=== PATIENT | female | born 1990 | race Native Hawaiian/Other Pacific Islander ===

== ENCOUNTER 2023-06-01 11:45 | Emergency (ER) | payer OTHER, SELFPAY ==
[2023-06-01 12:10] VITALS: BP 124/74; PULSE 70; RESP 18; TEMP 36.3; O2SAT 99
--- NOTE | 2023-06-01 12:13 | ED.GENADULT ---
HPI - General Adult General Chief complaint: Upper Respiratory Infection Stated complaint: sorethroat/covid exposure Source: patient, RN notes reviewed and old records reviewed Mode of arrival: ambulatory Limitations: no limitations History of Present Illness HPI narrative: 33-year-old female patient presents to [facility] with complaint of cough, congestion, sore throat, general malaise this started 2-3 days ago. Patient states was exposed to COVID. Patient states also has tonsil stones. Patient denies weakness, dizziness, chest pain, shortness of breath, wheezing. MD complaint: sore throat Onset (ago): day(s) (2-3) Related Data Home Medications Medication Instructions Recorded Confirmed cetirizine 10 mg tablet 10 mg PO DAILY 06/01/23 06/01/23 dexmethylphenidate 20 mg 20 mg PO DAILY 06/01/23 06/01/23 capsule,extended release [id number] escitalopram oxalate 5 mg tablet 10 mg PO DAILY 06/01/23 06/01/23 famotidine 20 mg tablet 20 mg PO DAILY 06/01/23 06/01/23 montelukast 10 mg tablet 10 mg PO DAILY 06/01/23 06/01/23 Allergies Allergy/AdvReac Type Severity Reaction Status Date / Time latex Allergy Intermediate Rash Verified 06/01/23 12:11 Review of Systems Constitutional: Constitutional: Reports no additional constitutional complaints, Reports body ache(s), Denies chills, Reports fatigue, Denies fever(s) and Denies headache(s) Eyes: Eyes: Reports no additional eye complaints and Denies blurry vision ENT: Reports system reviewed and no additional complaints, except as documented, Denies vertigo, Denies dizziness, Denies ear discharge, Denies otalgia, Denies facial pain, Denies headache(s), Reports nasal congestion, Denies nasal discharge, Denies sinus pain, Denies sinus pressure and Reports sore throat Cardiovascular: Cardiovascular: Reports no additional cardiovascular complaints, Denies chest pain, Denies chest pain at rest, Denies rapid heart rate and Denies dyspnea Respiratory: Respiratory: Reports no additional respiratory complaints, Denies chest congestion, Reports cough, Denies pain on inspiration, Denies pain with cough and Denies dyspnea Gastrointestinal: Gastrointestinal: Denies abdominal pain, Denies diarrhea, Denies nausea and Denies vomiting Integumentary/Breasts: Skin/Breast: Denies rash Neurologic: Reports system reviewed and no additional complaints, except as documented, Denies vertigo, Denies dizziness and Denies headache(s) Endocrine: Endocrine: Denies fatigue PMFSH Past Medical History Medical History Micromastia Comments At the time of my signature, I reviewed and agree with the nursing past medical, surgical, social, and family history. There is no relevant family history pertinent to the patient complaint. Exam Const: General: cooperative, healthy appearing, no acute distress and well nourished Nutritional Appearance: well nourished Orientation/consciousness: patient oriented x3 Limitations: no limitations HENMT: Head: normal to inspection and normocephalic Ears: external ears normal, TM's normal bilaterally, mastoids normal and Abnormal EAC present Face/Nose/Sinus: normal facial exam Face and sinus: normal facial exam Mouth: Yes Normal oral and palatal mucosa present, Yes oropharynx normal and Yes moist mucous membranes Throat: uvula midline and no uvular edema Other: Tonsil stones noted, mild posterior oropharynx erythema Eyes: General: appearance normal, both eyes and all related structures Sclera: sclerae normal Pupils: Equal, round and reactive pupils present Resp: Effort & Inspection: normal respiratory effort, able to speak in complete sentences, no audible wheezes, no cough, no respiratory distress and no retractions Auscultation: clear to auscultation bilaterally, no crackles, no rales, no rhonchi and no wheezes Cardio: Rate: regular rate Rhythm: regular rhythm Skin: General skin exam: normal co
== END 2023-06-01 12:37 | disposition home or self-care (01) ==
PROVIDERS: Emergency Provider Registered Nurse; PCP Nurse Practitioner Family
DX: J06.9 Acute upper respiratory infection, unspecified (principal); Z20.822 Contact with and (suspected) exposure to COVID-19
CPT/HCPCS: 87081; 87426; 87804; 87880; 99213; C9803; G0463

== ENCOUNTER 2024-06-27 17:42 | Emergency (ER) | payer OTHER, SELFPAY ==
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
--- OUTSIDE RECORDS SUMMARY | 2024-06-27 18:02 | XMS_ITS | Clinical Summary ---
Author Organization [facility] [address] Address [address] [place] [address] Care Team Providers Care Manager Poker Name Role Phone Unknown, Notinfile Primary Care Provider Unavail able Allergies Active Allergy Reactions Criticality Noted Date Comments Latex Rash Medium 02/24/2022 Medications montelukast (SINGULAIR) 10 mg tablet 2 Active cholecalciferol (VITAMIN D-3) 50,000 unit capsule TAKE 1 CAPSULE BY MOUTH 1 TIME A WEEK FOR 56 DAYS 2 Active cetirizine 10 mg capsule Take by mouth Active xabkuvfgqjwb-Ak-q urvashi-minerals 18-0.4 mg tablet Take by mouth Active benzonatate (TESSALON) 200 mg capsuleIndication s:Acute non-recurrent pansinusitis Take 1 capsule (200 mg total) by mouth 3 (three) times a day as needed for cough 30 capsule 2 Active Active Problems No known active problems Social History Tobacco Use Types Packs/Day Years Used Date Smoking Tobacco: Never Smokeless Tobacco: Never Tobacco Cessation:Counseling Given: Not Answered Personal Safety Answer Date Recorded Getting School Help Needed Not on file 08/01 Comments Unknown Sex and Gender Information Value Date Recorded Sex Assigned at Not on file 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 Gender Identity Not on file Sexual Orientation Not on file Obstetrics History Last Filed Vital Signs Vital Sign Reading Time Taken Comments Blood Pressure 115/77 02/24/2022 10:48 AM CDT Pulse 71 02/24/2022 10:48 AM CDT Temperature 36.8 ??C (98.2 ??F) 02/24/2022 10:48 AM C DT Respiratory Rate 16 02/24/2022 10:48 AM CDT Oxygen Saturation 98% 02/24/2022 10:48 AM CDT Inhaled Oxygen Concentration - - Weight 76 kg (167 lb 9.6 oz) 02/24/2022 10:48 AM CDT Height 172.7 cm (5' 7.99 ) 02/24/2022 10:48 AM C DT Body Mass Index 25.49 02/24/2022 10:48 AM CDT Plan of Treatment Health Maintenance Due Date Last Done Comments Cervical Cancer Screening 1991 Depression Screening 1991 Hepatitis C Screening 1991 DTaP/Tdap/Td Vaccine (1 - Tdap) 2002 Varicella Vaccines (1 of 2 - 13+ 2-dose series) 01/05/2004 Hepatitis B Screening 2009 Regular Well Visit/Exam 18-64 2009 Covid-19 Vaccine (2 - 2023-2 5 season) 2024 03/03/2021 Influenza Vaccine (#1) 2024 05/30/2020 Pneumococcal vaccine <65 Aged Out 02/13/2022 No longer eligible based on patient's age to complete this topic HPV Vaccines Aged Out No longer eligi ble based on patient's age to complete this topic Insurance [facility] CLAIMS [facility] CLAIMS Care Teams Manager Poker Relationship Specialty Start Date End Date Unknown, Notinfile PCP - General 02/24/22
--- OUTSIDE RECORDS SUMMARY | 2024-06-27 18:02 | XMS_ITS | Patient Health Record ---
Author Organization [facility] Address [address] [facility] [address] [place] [address] Care Team Providers Care Draw Frame Tender Name Role Phone Madina Giron Primary Care Provider Jessy Rocio Zuñiga Unavailable [phone] Migration, Provider Unavailable Unavailable Allergies Allergen (clinical drug ingredient) Drug/Non Drug Allergy documented on EMR Reaction Allergy Type Onset Date Status LATEX, NATURAL RUBBE R (uncoded) Unknown Allergy 10/15/2023 Active Results Component Value Reference Range Notes DRUG SCREEN, 14 DRUGS (DETEC TIMED), URINE Reviewed date:10/15/2023 12:00:00 AM Interpretation: Performing Lab: Notes/Report: Amphetamine negative Barbiturates negative Benzodiazipine negative Buprenorphine negative Cocaine negative MDMA/Ectasy negative Methadone negative Methamphetamine negative Morphine negative Oxycodone negative Phenocyclidine negative THC negative UDT Reviewed date:03/24/2024 02:00:27 PM Interpretation: Performing Lab: Notes/Report: THC N 0 - 50 ng/ml Cocaine N 0 - 300 ng/ml Amphetamine N 0 - 1000 ng/ml Buprenorphine (BUP) N 0 - 10 ng/ml Secobarbital (Bar) N 0 - 300 ng/ml Oxazepam (BZO) N 0 - 300 ng/ml 3-hjmlndtdzu-0,7-qnyipmtv-5, 3-diphenylpyrrolidine (EDDP) N 0 - 300 ng/ml Methamphetamine (MET) N 0 - 1000 ng/ml Methylenedioxymethamphetamine (MDMA) N 0 - 500 ng/ml Morphine (MOP 300/ATC1066) N 0 - 300 ng/ml Methadone (MTD) N 0 - 300 ng/ml Phencyclidine (PCP) N 0 - 25 ng/ml Propoxyphene (PPX) N 0 - 300 ng/ml Nortriptyline (TCA) N 0 - 1000 ng/ml Oxycodone N 0 - 300 ng/ml UDT Reviewed date:01/28/2024 08:47:15 AM Interpretation: Performing Lab: Notes/Report: THC N 0 - 50 ng/ml Cocaine N 0 - 300 ng/ml Amphetamine N 0 - 1000 ng/ml Buprenorphine (BUP) N 0 - 10 ng/ml Secobarbital (Bar) N 0 - 300 ng/ml Oxazepam (BZO) N 0 - 300 ng/ml 6-ixtwpawfxe-0,6-sxahxtsv-4, 3-diphenylpyrrolidine (EDDP) N 0 - 300 ng/ml Methamphetamine (MET) N 0 - 1000 ng/ml Methylenedioxymethamphetamine (MDMA) N 0 - 500 ng/ml Morphine (MOP 300/ICO4170) N 0 - 300 ng/ml Methadone (MTD) N 0 - 300 ng/ml Phencyclidine (PCP) N 0 - 25 ng/ml Propoxyphene (PPX) N 0 - 300 ng/ml Nortriptyline (TCA) N 0 - 1000 ng/ml Oxycodone N 0 - 300 ng/ml Reason For Referral No Information Medications Medication SIG (Take, Route, Frequency, Duration) Notes Start Date End Date Status Vitamin D3 125 MCG (5000 UT) Oral 10/15/2023 Unknown Famotidine 20 MG Oral 10/15/2023 Un known VITAMINS AND MINERALS *Reorder f rom [facility] for eRx and Interaction Alerts* 10/15/2023 Unknown Dexmethylphenidate HCl ER 25 MG 1 capsule in the morning Orally Once a day for 30 days 06/16/2024 5 Active Montelukast Sodium 10 MG Oral 10/15/2023 Unknown busPIRone HCl 5 MG 1 tablet Oral Twice a day for 30 days 06/16/2024 5 Active Adapalene 0.3 % External 10/15/2023 Unk nown traZODone HCl 50 MG 1 tablet at bedtime Orally Once a day for 90 days Active Social History Tobacco Use: Social History Observation [...] past year? Monthly or less (1 point) Problems Problem Type SNOMED Code ICD Code Onset Dates Problem Status W/U Status Risk Notes Problem Moderate recurrent major depression (96881031) Major depressive disorder, recurrent, moderate (F33.1) Active confirmed Problem Generalized anxiety disorder (70801058) Generalized anxiety disorder (F41.1) Active confirmed Problem Attention deficit hyperactivity disorder, combined type (34800372) Attention-deficit hyperactivity disorder, combined type (F90.2) Active confirmed Vital Signs Heart Rate 64 /min 03/24/2024 Blood pressure diastolic 74 mm Hg 03/24/2024 Height-cm 172.72 cm 03/24/2024 Weight-kg 81.19 kg 03/24/2024 Height 68.00 in 03/24/2024 Blood pressure systolic 110 mm Hg 03/24/2024 Weight 179 lbs 03/24/2024 BMI 27.21 kg/m2 03/24/2024 Encounters Encounter Location Date Provider Diagnosis [facility] [address] [address] 07/20/2023 Provider Migration Attention-deficit hyperactivity disorder, combined type F90.2 [facility] [email or web address] [address] [address] 07/22/2023 Provider Migration Attention-deficit hyperactivity disorder, combined type F90.2 [facility] [email or web address] [address] [address] 08/13/2023 Rocio Ramirez Major depressive disorder, recurrent, moderate F33.1 ; Attention-deficit hyperactivity disorder, combined type F90.2 and Generalized anxiety disorder F41.1 [facility] [place] [address] [facility] [address] [address] 09/15/2023 Provider Migration Attention-deficit hyperactivity disorder, combined type F90.2 [facility], [facility] [address] [place] [address] 10/09/2023 Provider Migration Major depressive disorder, recurrent, moderate F33.1 and Attention-deficit hyperactivity disorder, combined type F90.2 [facility], [facility] [address] [place] [address] 10/15/2023 Rocio James Major depressive disorder, recurrent, moderate F33.1 ; Generalized anxiety disorder F41.1 and Attention-deficit hyperactivity disorder, combined type F90.2 [facility], [facility] [address] [place] [address] 11/19/2023 Rocio James [facility], [facility] [address] [place] [address] 11/26/2023 Rocio James Attention-deficit hyperactivity disorder, combined type F90.2 ; Major depressive disorder, recurrent, moderate F33.1 and Generalized anxiety disorder F41.1 [facility], [facility] [address] [place] [address] 01/28/2024 Rocio James Attention-deficit hyperactivity disorder, combined type F90.2 ; Major depressive disorder, recurrent, moderate F33.1 and Generalized anxiety disorder F41.1 [facility], [facility] [address] [place] [address] 03/24/2024 Rocio James Attention-deficit hyperactivity disorder, combined type F90.2 ; Major depressive disorder, recurrent, moderate F33.1 and Generalized anxiety disorder F41.1 [facility], [facility] [address] [place] [address] 06/16/2024 Rocio James Attention-deficit hyperactivity disorder, combined type F90.2 ; Major depressive disorder, recurrent, moderate F33.1 and Generalized anxiety disorder F41.1 [facility], [facility] [address] [place] [address] 07/28/2023 Provider Migration [facility], [facility] [address] [place] [address] 07/29/2023 Provider Migration [facility], [facility] [address] [place] [address] 09/01/2023 [facility], [facility] [address] [place] [address] 09/14/2023 [facility], [facility] [address] [place] [address] 09/29/2023 [facility], [facility] [address] [place] [address] 10/06/2023 Provider [facility], [facility] [address] [place] [address] 10/09/2023 [facility], [facility] [address] [place] [address] 10/17/2023 [facility], [facility] [address] [place] [address] 10/18/2023 [facility], [facility] [address] [place] [address] 12/01/2023 Rocio James Attention-deficit hyperactivity disorder, combined type F90.2 [facility], [facility] [address] [place] [address] 01/05/2024 Rocio James Attention-deficit hyperactivity disorder, combined type F90.2 [facility], [facility] [address] [place] [address] 02/16/2024 Rocio James Attention-deficit hyperactivity disorder, combined type F90.2 [facility] [address] [place] [address] 02/24/2024 Rocio James [facility], [facility] [address] [place] [address] 03/16/2024 Rocio James Attention-deficit hyperactivity disorder, combined type F90.2 [facility], [facility] [address] [place] [address] 03/18/2024 Rocio James Attention-deficit hyperactivity disorder, combined type F90.2 [facility], [facility] [address] [place] [address] 05/03/2024 Rocio James Attention-deficit hyperactivity disorder, combined type F90.2 Assessments Encounter Date Diagnosis (ICD Code) Assessment Notes Treatment Notes Treatment Clinical Notes Section Notes 11/26/2023 Attention-defici t hyperactivity disorder, combined type (ICD-10 - F90.2) 12/01/2023 Attention-defici t hyperactivity disorder, combined type (ICD-10 - F90.2) 01/05/2024 Attention-defici t hyperactivity disorder, combined type (ICD-10 - F90.2) 01/28/2024 Attention-defici t hyperactivity disorder, combined type (ICD-10 - F90.2) 02/16/2024 Attention-defici t hyperactivity disorder, combined type (ICD-10 - F90.2) 03/16/2024 Attention-defici t hyperactivity disorder, combined type (ICD-10 - F90.2) 03/18/2024 Attention-defici t hyperactivity disorder, combined type (ICD-10 - F90.2) 03/24/2024 Attention-defici t hyperactivity disorder, combined type (ICD-10 - F90.2) 05/03/2024 Attention-defici t hyperactivity disorder, combined type (ICD-10 - F90.2) 06/16/2024 Attention-defici t hyperactivity disorder, combined type (ICD-10 - F90.2) 07/20/2023 Attention-defici t hyperactivity disorder, combined type (ICD-10 - F90.2) 07/22/2023 Attention-defici t hyperactivity disorder, combined type (ICD-10 - F90.2) 08/13/2023 Major depressive disorder, recurrent, moderate (ICD-10 - F33.1) 08/13/2023 Generalized anxiety disorder (ICD-10 - F41.1) 08/13/2023 Attention-defici t hyperactivity disorder, combined type (ICD-10 - F90.2) 09/15/2023 Attention-defici t hyperactivity disorder, combined type (ICD-10 - F90.2) 10/09/2023 Major depressive disorder, recurrent, moderate (ICD-10 - F33.1) 10/09/2023 Attention-defici t hyperactivity disorder, combined type (ICD-10 - F90.2) 10/15/2023 Major depressive disorder, recurrent, moderate (ICD-10 - F33.1) 10/15/2023 Generalized anxiety disorder (ICD-10 - F41.1) 10/15/2023 Attention-defici t hyperactivity disorder, combined type (ICD-10 - F90.2) 11/26/2023 Major depressive disorder, recurrent, moderate (ICD-10 - F33.1) 11/26/2023 Generalized anxiety disorder (ICD-10 - F41.1) 06/16/2024 Major depressive disorder, recurrent, moderate (ICD-10 - F33.1) 03/24/2024 Major depressive disorder, recurrent, moderate (ICD-10 - F33.1) 01/28/2024 Major depressive disorder, recurrent, moderate (ICD-10 - F33.1) 01/28/2024 Generalized anxiety disorder (ICD-10 - F41.1) 03/24/2024 Generalized anxiety disorder (ICD-10 - F41.1) 06/16/2024 Generalized anxiety disorder (ICD-10 - F41.1) 11/26/2023 Other Start methylphenidate IR 5mg PRN in the afternoons for ADHD booster. Patient educated on all medications including potential benefits, side effects, risks. Educated on proper dosing schedule and importance of compliance. [place] report checked and consistent with prescription history, no controlled substance prescriptions from other providers. 01/28/2024 Other Stop Wellbutrin due to irritbility, nausea. Taper off of escitalopram-take half tablet daily for 4 days then stop. Start fluoxetine-take 10mg daily. May increase to 20mg after one week if depression, anxiety continue. Patient educated on all medications including potential benefits, side effects, risks. Educated on proper dosing schedule and importance of compliance. [place] report checked and consistent with prescription history, no controlled substance prescriptions from other providers. 03/24/2024 Other Discontinue fluoxetine due to ineffectiveness. Start duloxetine 30mg daily for depression, anxiety. Patient educated on all medications including potential benefits, side effects, risks. Educated on proper dosing schedule and importance of compliance. [place] report checked and consistent with prescription history, no controlled substance prescriptions from other providers. 06/16/2024 Other Stop duloxetine Start buspar 5mg BID for anxiety Patient educated on all medications including potential benefits, side effects, risks. Educated on proper dosing schedule and importance of compliance. [place] report checked and consistent with prescription history, no controlled substance prescriptions from other providers. -Assessment and treatment plan reviewed with patient. -Compliance with treatment plan importance discussed. -Discussed the risks/benefits of this medication -Discussed medication side effects. -Contact office if symptoms worsen. -Discussed that it can take up to 6-8 weeks to see full therapeutic effects of psychotropic medications. -Crisis prevention hotline 598. Plan Of Treatment Pending Test Test Name Order Date UDT 11/26/2023 Next Appt Details Provider Name:Rocio Ramirez, 09/15/2024 08:15:00 AM, [address] [facility] [address], [facility] [address], [place], [address], Insurance Providers Payer Name Payer Address Payer Phone Subscriber Number Group Number Insured Name Patient Relationship to Insured Coverage Start Date Coverage End Date [facility] [address] [place] [address] [id number] AUGUSTINE SINGH Self - patient is the insured Medical (General) History Medical History History ICD Code Problems: Attention deficit hyperactivit y disorder, combined type Generalized anxiety disorder Moderate recurrent major depression , Surgical History Surgery Date(Month/Year) Sinus surgery 11/08/2017 Any surgical history 05/09/2016
--- OUTSIDE RECORDS SUMMARY | 2024-06-27 18:02 | XMS_ITS | Referral Summary ---
Author Organization [facility] [address] [place] Address [address] [place] [address] Care Team Providers Care Key Punch Teacher Name Role Phone Unknown, Notinfile Primary Care Provider Unavail able Allergies Active Allergy Reactions Criticality Noted Date Comments Latex Rash Medium 02/24/2022 Medications montelukast (SINGULAIR) 10 mg tablet 2 Active cholecalciferol (VITAMIN D-3) 50,000 unit capsule TAKE 1 CAPSULE BY MOUTH 1 TIME A WEEK FOR 56 DAYS 2 Active cetirizine 10 mg capsule Take by mouth Active vskjrcjecvzi-Bi-g urvashi-minerals 18-0.4 mg tablet Take by mouth [...] on file 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
--- OUTSIDE RECORDS SUMMARY | 2024-06-27 18:03 | XMS_ITS | Clinical Summary ---
Author Organization [facility] Address [address] [place] [address] Care Team Providers Care Safety Admin Assistant Name Role Phone Unavailable Primary Care Provider Unavailabl e Immunizations Immunization Administration Dates Next Due Covid-19 Vaccine, Vector-nr, Rs-ad26, Pf, 0.5 Ml ([email or web address]) 03/03/2021 Social History Tobacco Use Types Packs/Day Years Used Date Smoking Tobacco: Never Assessed Comments Unknown Sex and Gender Information Value Date Recorded Sex Assigned at Not on file Legal Sex Female 1:11 PM CDT Gender Identity Not on file Sexual Orientation Not on file Plan of Treatment Health Maintenance Due Date Last Done Comments Hepatitis C Virus (HCV) Screening 1991 TdaP Immunization 1991 Hepatitis B Immunization (1 of 3 - 19+ 3-dose series) 2010 Pap Smear 01/05/2012 Cervical Cancer Screening (CCS) 2021 HPV/Cotest 2021 Influenza Immunization (#1) 2024 05/30/2020 SARS-COV-2 Immunization ( season) 2024 03/03/2021 Respiratory Syncytial Virus (RSV) Immunization (Adult) (1 - 1-dose 75+ series) 2066 Meningococcal Immunization (ACWY) Aged Out No longer eligible based on patient's age to complete this topic Pneumococcal Immunization Combined Aged Out No longer eligible based on patient's age to complete this topic Rotavirus Immunization Aged Out No lo nger eligible based on patient's age to complete this topic
--- OUTSIDE RECORDS SUMMARY | 2024-06-27 18:04 | XMS_ITS | Patient Health Summary ---
Author Organization [facility] Address [address] [facility] [address] [address] Care Team Providers Care Mail Clerk Name Role Phone [facility], [address] [place] [address] Primary Care Prov ider Note from [facility],non-owned Affiliates and Associated Physician Practices is amultiple site organization consisting of ambulatory clinics and hospital sitesin [place], [place], [place]. This disclosure is being madepursuant to the Care Everywhere program and may not contain all information available regarding this patient. Last updated 18.[facility] [employer] Allergies * Latex(Unknown) Active Problems Problem Noted Date Diagnosed Date Third 07/13/2019 Encounter for ultrasound 07/13/2019 H/O: section 07/13/2019 Social History Tobacco Use Types Packs/Day Years Used Date Smoking Tobacco: Never Assessed Sex and Gender Information Value Date Recorded Sex Assigned at Not on file Gender Identity Not on file Sexual Orientation Not on file Procedures * SONOGRAM - COMPLETE(Performed 11/08/2019) Performed for Third (HCC), Encounter for ultrasound (HCC), H/O: section * SONOGRAM - COMPLETE(Performed 09/26/2019) Performed for Third (HCC), Encounter for ultrasound (HCC), H/O: section * SONOGRAM - COMPLETE(Performed 07/15/2019) Performed for Third (HCC), Encounter for ultrasound (HCC), H/O: section Results * SONOGRAM - COMPLETE (11/08/2019 8:36 AM CDT) Only the most recent of3 resultswithin the time period is included. Anatomical Region Laterality Modality Other 11/08/2019 8:36 AM CDT Narrative 11/08/2019 9:37 AM CDT ? - [facility] ?PHONE: ??FAX: ? Pat. Name: ?AUGUSTINE SINGH Pat. No: ?[id number] Study Date: ?? 11/08/2019 ??8:36am , Age: ? 1990, 29 Pregnancies: ?? 3, Para 2 Height: ? 68 in Weight: ? 161 lb LMP: ?02/13/2019 GA by LMP: ?38w2d GA by Base: ?? 38w2d ?? AYAZ: 11/20/2019 GA by US: ? 36w6d ?? AYAZ: 11/30/2019 GA Selected: ??38w2d (LMP) AYAZ: ?11/20/2019 Referring MD: Reta Whiting Capt, DARRIAN, MD ISIDRO Carousel Operator: ??Magali Smith RDMS CPT4: ? 20814 BMI: ?24.48 Hist/Ind: ? Size > Dates ?G2: macrosomia & CD MEASUREMENTS & AGE ? GROWTH EVALUATION Measurement ??GA ? Range ? Srce %for GA Ratios ----- ---- ------- BPD ??8.8 cm 35w5d (99l5m-55c0t) Hadl BPD 10% FL/BPD 0.82 (0.71 - 0.87) HC ??32.9 cm 37w3d (87l2h-33l0l) Hadl HC ??13% FL/AC ??0.21 (0.20 - 0.24) AC ??34.3 cm 38w2d (98i2e-67j7r) Hadl AC ??68% HC/AC ??0.96 (0.90 - 1.09) FL ?? 7.2 cm 37w0d (17g1r-70b2u) Hadl FL ??23% CI ? 0.76 (0.70 - 0.86) HL ?? 6.3 cm 36w3d (47k0q-25n3c) Michael HL ??18% GA for sonogram 36w6d (84l7m-88t5v) ?? Weight Estimate: based on (BPD,HC,AC,FL) [place] ?Weight: 3238 gm (2765-3711gm) Had ? : 7lbs, 2oz ? Normal: 3296 gm (2472- 4120gm) Had ? Wt% ? 45% for 38w2d Heart Rate: 155 bpm Amniotic Fluid Index: 15.3cm (07.3-23.5) Q1: 3.4cm ??Q2: 2.6cm ??Q3: 3.2cm ??Q4: 6.2cm ?? EVAL, PLACENTA Presentation: cephalic Placenta: posterior Heart Rate: 155 bpm Amniotic Fluid Volume: normal CLINICAL SUMMARY Study Number: 3 ?? A single fetus is seen in cephalic presentation. ??The measurements today are consistent with appropriate interval growth. ??The AYAZ is based on LMP and prior ultrasound . ??The amniotic fluid volume is within normal limits. ?? IMPRESSION: Single, live, intrauterine at 38w2d ?? size is within normal limits ?? Amniotic fluid volume: within normal limits No malformations seen within the limitations of ultrasound RECOMMEND: Ultrasound as clinically indicated Please be advised that these recommendations are being made in the best interest of our patients during the COVID 19 Pandemic Thank you for allowing us the opportunity to care for your patient Sha Myers MD <Electronic Signature> ??11/08/2019 09:36am Sha Myers MD [facility] ORDERABLES Care Teams Mail Clerk Relationship Specialty Start Date End Date [address] [facility] [place] [address] PCP - General Family Medicine 07/14/19
--- OUTSIDE RECORDS SUMMARY | 2024-06-27 18:04 | XMS_ITS | Clinical Summary ---
Author Organization [facility] Address [address] [place] [address]. [place] [address] [place] [address] Care Team Providers Care College Associate Name Role Phone Elvia Sparrow MD Primary Care Provider + [phone] Allergies Active Allergy Reactions Criticality Noted Date Comments Latex Hives,Unknown 10/30/2017 Seasonal Eyes Water & Itch 10/30/2017 Medications fexofenadine 180 MG tablet Take 180 mg by mouth daily. Active vitamin, low iron, ( VITAMIN WITH IRON) 27-0.8 MG tablet Take 1 tablet by mouth daily. Active sertraline 25 MG tablet Take 25 mg by mouth daily. Active lanolin Cream cream Apply topically as needed for Irritation. 9 mL 0 Active hydrocortisone 2.5 % rectal cream Place rectally 2 (two) times daily. 1 Tube 0 Active Active Problems Problem Noted Date Diagnosed Date Vaginal delivery ([facility]) 11/14/2019 Social History Tobacco Use Types Packs/Day Years Used Date Smoking Tobacco: Never Smokeless Tobacco: Never Alcohol Use Standard Drinks/Week Comments No 0 (1 standard drink = 0.6 oz pur e alcohol) Humiliation, Afraid, Rape, and Kick questionnair e Answer Date Recorded Fear of Current or Ex-Partner No Emotionally Abused No 11/13/2019 Physically Abused No 11/13/2019 Sexually Abused No 11/13/2019 Comments No Sex and Gender Information Value Date Recorded Sex Assigned at Not on file Legal Sex Female 7:47 PM CDT Gender Identity Not on file Sexual Orientation Not on file Last Filed Vital Signs Vital Sign Reading Time Taken Comments Blood Pressure 116/77 11/15/2019 9:17 AM CDT Pulse 61 11/15/2019 9:17 AM CDT Temperature 36.8 ??C (98.2 ??F) 11/15/2019 9:17 AM CD T Respiratory Rate 16 11/15/2019 9:17 AM CDT Oxygen Saturation 98% 11/15/2019 9:17 AM CDT Inhaled Oxygen Concentration - - Weight 93 kg (205 lb) 11/13/2019 9:55 AM CDT Height 172.7 cm (5' 8 ) 11/13/2019 9:55 AM CDT Body Mass Index 31.17 11/13/2019 9:55 AM CDT Plan of Treatment Health Maintenance Due Date Last Done Comments Cervical Cancer Screening Pa p Smear (Age 30 to 64) Every 3 Years 1991 Annual Physical 1994 Hepatitis C 2009 DTaP, Tdap and Td Vaccines ( 1 - Tdap) 2010 Hepatitis B Vaccines (1 of 3 - 19+ 3-dose series) 2010 Cervical Cancer Screening Pa p with HPV Testing (Age 30 to 64) Every 5 Years 2021 Cervical Cancer Screening with HPV 2021 COVID-19 Vaccine (2023-2 5 season) 2024 Influenza Adult (#1) 2024 HPV Vaccines Aged Out No longer eligi ble based on patient's age to complete this topic Meningococcal B Vaccine Aged Out No l onger eligible based on patient's age to complete this topic Meningococcal Vaccine Aged Out No kaycee germaine eligible based on patient's age to complete this topic Pneumococcal Vaccine: Pediat rics (0 to 5 Years) and At-Risk Patients (6 to 64 Years) Aged Out No longer eligible b ased on patient's age to complete this topic RSV Immunizations Under 20 Months Aged Out No longer eligible based on patient's age to complete this topic Insurance Advance Directives * Full Code (Latest Code Status on File) Date Activated Date Inactivated Comments 11/13/2019 11:41 AM 11/13/2019 6:02 PM Care Teams College Associate Relationship Specialty Start Date End Date Elvia Sparrow MD [address] [place] [id number] PCP - General FAMILY PRACTICE 10/30/17
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
--- OUTSIDE RECORDS SUMMARY | 2024-06-27 18:04 | XMS_ITS | CONTINUITY OF CARE DOCUMENT ---
Author Name pedro luis cloud Address Unknown Organization [facility] Office Address [address] [place] [address] Phone [phone] Care Team Providers Care Creative Arts Music Therapist Name Role Phone Sam Shay DO Robert Unavailable Gianna [facility] Unavailable [facility] Unavailable INSURANCE PROVIDERS Payer name Policy type / Coverage type Marti red constitution party ID [facility] [employer] insurance CAIS [id number]
--- OUTSIDE RECORDS SUMMARY | 2024-06-27 18:04 | XMS_ITS | Encounter Summary ---
Author Organization [facility] Address [address] [place] [address]. [place] [address] [place] [address] Care Team Providers Care Replanting Machine Crew Name Role Phone Elvia Sparrow MD Primary Care Provider + [phone] Encounter Details Date Type Department Care Team (Late st Contact Info) Description 11/18/2019 Hospital Follow-up Call [facility] [place] [id number] Dinora Asencio, RN Social History Tobacco Use Types Packs/Day Years [...] on file Sexual Orientation Not on file COVID-19 Exposure Response Date Recorded In the last month, have you been in contact with someone who was confirmed or suspected to have Coronavirus / COVID-19? No / Unsure 11/13/2019 9:39 AM CDT documented as of this encounter Functional Status * RETIRED Are you deaf or do you have serious difficulty hearing Answer Date of Assessment Author Status No 11/15/2019 10:28 AM CDT Acti ve * RETIRED Are you blind or do you have serious difficulty seeing, even when wearing glasses? Answer Date of Assessment Author Status No 11/15/2019 10:28 AM CDT Acti ve * Do you have serious difficulty walking or climbing stairs? Answer Date of Assessment Author Status No 11/15/2019 10:28 AM Mary Ann Pulido RN Active * Do you have difficulty dressing or bathing? Answer Date of Assessment Author Status No 11/15/2019 10:28 AM Mary Ann Pulido RN Active * Because of a physical, mental, or emotional condition, do you have difficulty doing errands alone such as visiting a doctor's office or shopping? Answer Date of Assessment Author Status No 11/15/2019 10:28 AM Mary Ann Pulido RN Active documented as of this encounter Mental Status * Because of a physical, mental, or emotional condition, do you have serious difficulty concentrating, remembering, or making decisions? Answer Entry Date Author Status No 11/15/2019 10:28 AM Mary Ann Pulido RN Active documented in this encounter Plan of Treatment Not on file documented as of this encounter Visit Diagnoses Not on filedocumented in this encounter Care Teams Replanting Machine Crew Relationship Specialty Start Date End Date Elvia Sparrow MD [address] [place] [address] PCP - General FAMILY PRACTICE 10/30/17 documented as of this encounter
--- OUTSIDE RECORDS SUMMARY | 2024-06-27 18:04 | XMS_ITS ---
Author Organization [facility] Address [address] [place] [address] Care Team Providers Care Operating Manager Name Role Phone Armando Gongora Primary Care Provider Jayshree Durbin [phone] REASON FOR VISIT Last Attempt: Immunotherapy OOP Estimate Encounters Encounter Location Date Provider Diagnosis [facility] [address] [place] [address] 04/30/2023 Jayshree Moran Plan Of Treatment No Information Progress Notes * Elizabeth SINGHDOB:1989 (33 yo F)Acc No.[id number]:04/30/2023 Patient:?Elizabeth SINGH :1990???Age:33 Y???Sex:Female Address:[address] [place], [address] * true * Date:? Generated for Printi peng/Wilman/eTransmitting on:?06/27/2024 06:04 PM PHP WEB DEVELOPER
--- OUTSIDE RECORDS SUMMARY | 2024-06-27 18:04 | XMS_ITS ---
Author Organization [facility] [employer] Address [address] [facility] [address] [address] [place] [address] Care Team Providers Care Police Inspector Name Role Phone Madina Giron Primary Care Provider Jessy Rocio Zuñiga Unavailable [phone] REASON FOR VISIT Refill Medications Medication SIG (Take, Route, Frequency, Duration) Notes Start Date End Date Status Dexmethylphenidate HCl ER 25 MG 1 capsule in the morning Oral Once a day for 30 days 05/03/2024 06/02/2024 Active Social History Sex Assigned At : Social History Observation Description Sex Assigned At Female Encounters Encounter Location Date Provider Diagnosis [facility] [employer] [facility] [address] [place] [address] 05/03/2024 Rocio Ramirez Attention-deficit hyperactivity disorder, combined type F90.2 Assessments Encounter Date Diagnosis (ICD Code) Assessment Notes Treatment Notes Treatment Clinical Notes Section Notes 05/03/2024 Attention-deficit hyperactivity disorder, combined type (ICD-10 - F90.2) Plan Of Treatment Medication Medication Name Sig Start Date Stop Date Notes Dexmethylphenidate HCl ER 25 MG 1 capsul e in the morning Oral Once a day for 30 days 05/03/2024 06/02/2024 Next Appt Details Provider Name:Rocio Ramirez, 09/15/2024 08:15:00 AM, [address], [place], [address], Progress Notes * AUGUSTINE SINGHDOB:1989 (34 yo F)Acc No.[id number]:05/03/2024 Patient:?AUGUSTINE SINGH :1990???Age:34 Y???Sex:Female Address:[address] [place] [address], [address] * Refills? Refill Dexmethylphenidate HCl ER Capsule Extended Release 24 Hour, 25 MG, Oral, 30, 1 capsule in the morning, Once a day, 30 days, Refills=0 * true * Date:? Generated for Nichelle khoury/Wilman/eTransmitting on:?06/27/2024 06:04 PM VALIDATION ARCHITECT
--- OUTSIDE RECORDS SUMMARY | 2024-06-27 18:04 | XMS_ITS | Encounter Summary ---
Author Organization [facility] Address [address] [place] [address]. [place] [address] [place] [address] Care Team Providers Care Sales Planning Manager Name Role Phone Elvia Sparrow MD Primary Care Provider + [phone] Encounter Details Date Type Department Care Team (Late st Contact Info) Description 11/19/2019 Hospital Follow-up Call [facility] [place] [address] Lou Ferrer, RN Social History Tobacco Use Types Packs/Day [...] on filedocumented in this encounter Care Teams Sales Planning Manager Relationship Specialty Start Date End Date Elvia Sparrow MD [address] [place] [address] PCP - General FAMILY PRACTICE 10/30/17 documented as of this encounter
--- OUTSIDE RECORDS SUMMARY | 2024-06-27 18:04 | XMS_ITS ---
Author Organization [facility] Address [address] [place] [address] Care Team Providers Care Wood Milling Machine Operator Name Role Phone Armando Gongora Primary Care Provider UnavailJayshree Bhandari Unavailable [phone] ZZ-Migration, Provider Unavailable Unavailab le REASON FOR VISIT [facility] Encounter Medications Medication SIG (Take, Route, Frequency, Duration) Notes Start Date End Date Status Montelukast Sodium 10 MG 1 tab(s) orally once a day for 90 days Active Pepcid 20 MG 1 tab(s) orally 2 times a day for 90 days Active Fluticasone Propionate 50 MCG/ACT 2 spray(s) in each nostril BID for 30 day(s) Active NASAL WASHES N/A DIRECTED INTRANASALLY NEEDED for 30 *Please review for potential replacement for e-prescription and drug interaction check* Active D3 125 MCG 1 TAB(S) ORALLY ONCE A DAY for 30 DAY(S) *Please review and pick correct strength-formula tion from Medispan options. If intended option is not shown, discontinue and re-order from Quick Search* Active Pepcid 20 MG 1 tab(s) orally 2 times a day for 90 days Active Cetirizine HCl 10 MG 1 tab(s) orally BID for 90 days Active Cetirizine HCl 10 MG 1 tab(s) orally BID for 90 days Active Benadryl Allergy 25 MG 1 tab(s) orally 3 times a day Not-Taking Montelukast Sodium 10 MG 1 tab(s) orally once a day for 90 days Active Multivitamin - 1 tab(s) orally once a day for 30 day(s) Active Probiotic Formula *Please review and pick correct strength-formula tion from Domosite options. If intended option is not shown, discontinue and re-order from Quick Search* Active Montcalm-3 1000 MG 1 cap(s) orally once a day for 30 day(s) takes bid Active Escitalopram Oxalate 20 MG 1 tab(s) orally once a day Active Azelastine HCl 137 MCG/SPRAY 2 spray(s) intranasally 2 times a day for 30 day(s) Active Dexmethylphenidate HCl 20 MG 1 CAP(S) ORALLY ONCE A DAY (IN THE MORNING) *Please review and pick correct strength-formula tion from Domosite options. If intended option is not shown, discontinue and re-order from Quick Search* Active Encounters Encounter [facility] Date [facility] [address] [facility] Provider FlorZ-Pedro Luis Allergic rhinitis due to pollen J30.1 ; Idiopathic urticaria L50.1 and Vitamin D deficiency, unspecified E55.9 Assessments Encounter Date Diagnosis (ICD Code) Assessment Notes Treatment Notes Treatment Clinical Notes Section Notes 11/14/2023 Allergic rhinitis due to pollen (ICD-10 - J30.1) 11/14/2023 Idiopathic urticaria (ICD-10 - L50.1) 11/14/2023 Vitamin D deficiency, unspecified (ICD-10 - E55.9) Plan Of Treatment Medication Medication Name Sig Start Date Stop Date Notes Montelukast Sodium 10 MG 1 tab(s) orally once a day for 90 days Pepcid 20 MG 1 tab(s) orally 2 times a day for 90 days Fluticasone Propionate 50 MCG/ACT 2 spray(s) in each nostril BID for 30 day(s) NASAL WASHES N/A DIRECTED INTRANASALLY NEEDED for 30 *Please review for potential replacement for e-prescription and drug interaction check* D3 125 MCG 1 TAB(S) ORALLY ONCE A DAY for 30 DAY(S) *Please review and pick correct strength-formulation from Domosite options. If intended option is not shown, discontinue and re-order from Quick Search* Cetirizine HCl 10 MG 1 tab(s) orally BID for 90 days Azelastine HCl 137 MCG/SPRAY 2 spray(s) intranasally 2 times a day for 30 day(s) Progress Notes * Elizabeth SINGH JDOB:1989 (34 yo F)Acc No.[id number]:11/14/2023 Patient:?Elizabeth SINGH Provider:?Provider Migration :1990???Age:33 Y???Sex:Female D ate:11/14/2023 Address:[address] [place], [place] [id number] Pcp:Armando Gongora Subjective: * Chief Complaints: * ???1. Multum To [facility] Con version Encounter. * Medical History:? * Medications:?Taking Dexmethy lphenidate HCl 20 MG CAPSULE, EXTENDED RELEASE 1 CAP(S) ORALLY ONCE A DAY (IN THE MORNING) , Notes to Pharmacist: *Please review and pick correct strength-formulation from Domosite options. If intended option is not shown, discontinue and re-order from Quick Search*, Taking Escitalopram Oxalate 20 MG Tablet 1 tab(s) orally once a day , Taking Montcalm-3 1000 MG Capsule 1 cap(s) orally once a day , Notes to Pharmacist: takes bid, Taking Probiotic Formula , Notes to Pharmacist: *Please review and pick correct strength-formulation from Domosite options. If intended option is not shown, discontinue and re-order from Backchat Search*, Taking Multivitamin - Tablet 1 tab(s) orally once a day , Taking Cetirizine HCl 10 MG Tablet 1 tab(s) orally BID , Taking Pepcid 20 MG Tablet 1 tab(s) orally 2 times a day , Taking Montelukast Sodium 10 MG Tablet 1 tab(s) orally once a day , Not- Taking/PRN Benadryl Allergy 25 MG Tablet 1 tab(s) orally 3 times a day Objective: * Vitals:? Assessment: * Assessment: 1.?Allergic rhinitis due to pollen - J30.1???2.?Idiopathic urticaria - L50.1???3.?Vitamin D deficiency, unspecified - E55.9??? Plan: * Treatment: 2.?Idiopathic urticaria? Refill Cetirizine HCl Tablet, 10 MG, 1 tab(s), orally, BID, 90 days, 180 Tablet, Refills 1;?Refill Pepcid Tablet, 20 MG, 1 tab(s), orally, 2 times a day, 90 days, 180 Tablet, Refills 1;?Refill Montelukast Sodium Tablet, 10 MG, 1 tab(s), orally, once a day, 90 days, 90 Tablet, Refills 1.?? 3.?Vitamin D deficiency, uns pecified? Continue D3 TABLET, 125 MCG, 1 TAB(S), ORALLY, ONCE A DAY, 30 DAY(S), 30, Notes to Pharmacist: *Please review and pick correct strength-formulation from LookSharp (powering [employer])span options. If intended option is not shown, discontinue and re-order from Quick Search*.?? 4.?Others? Start Azelastine HCl Solution, 137 MCG/SPRAY, 2 spray(s), intranasally, 2 times a day, 30 day(s), 1, Refills 3.?? * Billing Information: * Visit Code:? * Procedure Codes:? * Electronic signature of Isaak AMOR-Migration on 06/27/2024 at 06:03 PM GORING CUTTER Sign off status: Pending * Provider:?Provider Migration Date:?11/13 Generated for Nichelle khoury/Wilman/Princess on:?06/27/2024 06:03 PM GORING CUTTER
--- OUTSIDE RECORDS SUMMARY | 2024-06-27 18:04 | XMS_ITS | Referral Summary ---
Author Organization [facility] Address [address] [place] [address] Care Team Providers Care Associate Spa Director Name Role Phone [facility], [address] [place] [address] Primary Care Prov ider Source Comments [facility],non-owned Affiliates and Associated Physician Practices is amultiple site organization consisting of ambulatory clinics and hospital sitesin [place], [place], [place] and [place]. This disclosure is being madepursuant to the Care Everywhere program and may not contain all information available regarding this patient. Last updated 18.[facility] [employer] Allergies Active Allergy Reactions Criticality Noted Date Comments Latex Unknown 07/13/2019 Active Problems Problem Noted Date Diagnosed Date Third 07/13/2019 Encounter for ultrasound 07/13/2019 H/O: section 07/13/2019 Overview (07/13/2019): X 1 for breech presentation Social History Tobacco Use Types Packs/Day Years Used Date Smoking Tobacco: Never Assessed Sex and Gender Information Value Date Recorded Sex Assigned at Not on file Gender Identity Not on file Sexual Orientation Not on file Plan of Treatment Not on file Care Teams Associate Spa Director Relationship Specialty Start Date End Date [facility] [address] [place], [place], [place] [address] PCP - General Family Medicine 07/14/19
--- OUTSIDE RECORDS SUMMARY | 2024-06-27 18:04 | XMS_ITS | Encounter Summary ---
Author Organization [facility] Address [address] [place] [address]. [place] [address] [place] [address] Care Team Providers Care Application Software Engineer Name Role Phone Elvia Sparrow MD Primary Care Provider + [phone] Encounter Details Date Type Department Care Team (Late st Contact Info) Description 11/16/2019 Hospital Follow-up Call [facility] [place], [place] [id number] Kesha Jiang, RN Social History Tobacco Use Types Packs/Day [...] on filedocumented in this encounter Care Teams Application Software Engineer Relationship Specialty Start Date End Date Elvia Sparrow MD [address] [place] [address] PCP - General FAMILY PRACTICE 10/30/17 documented as of this encounter
--- OUTSIDE RECORDS SUMMARY | 2024-06-27 18:04 | XMS_ITS ---
Author Organization [facility] Address [address] [place] [address] Care Team Providers Care Retail And Promotions Coordinator Name Role Phone Armando Gongora Primary Care Provider Jayshree Durbin Unavailable [phone] Allergies No Known Allergies REASON FOR VISIT [facility] follow-up, with chronic sinus symptoms and infections. S/P sinus surgery by Dr. Gandhi in 2011.Wants to hold off on SCIT as she is doing so well., Chronic hives since 2011 with episodic swellingof eyelids at least 10 times in life. Doing better on new regimen - no interval hives. Seen by Endocrinology as thryoid ab >1000, Taking Vitamin D3. finished 8 weeks of loading. Now on 5000 IU. Pneumovax given last visit. Hib not drawn, rechecked which was low. Has yet to obtain booster. No interval infections., Random rashes with various products. Trying to stick to fragrance free products - interested in patch testing, MA evaluation for screening to assess suitability for vaccine administration Medications Medication SIG (Take, Route, Frequency, Duration) Notes Start Date End Date Status PEPCID 20 mg 1 tab(s) orally 2 times a day for 90 days Active MONTELUKAST 10 mg 1 tab(s) orally once a day for 90 days Active MULTIVITAMIN Multiple Vitamins 1 tab(s) orally once a day for 30 day(s) Active CETIRIZINE 10 mg 1 tab(s) orally BID for 90 days Active BENADRYL ALLERGY 25 mg 1 tab(s) orally 3 times a day Not-Taking OMEGA-3 1000 mg 1 cap(s) orally once a day for 30 day(s) takes bid Active PROBIOTIC FORMULA Ac tive AZELASTINE HYDROCHLORIDE NASAL 137 mcg/inh 2 spray(s) intranasally 2 times a day for 30 day(s) Active ESCITALOPRAM 20 mg 1 tab(s) orally once a day Active FLUTICASONE NASAL 50 mcg/inh 2 spray(s) in each nostril BID for 30 day(s) Active DEXMETHYLPHENIDATE 20 mg 1 cap(s) orally once a day (in the morning) Active NASAL WASHES N/A as directed intranasally as needed for 30 Active D3 125 mcg 1 tab(s) orally once a day for 30 day(s) Active MONTELUKAST 10 mg 1 tab(s) orally once a day for 90 days Active PEPCID 20 mg 1 tab(s) orally 2 times a day for 90 days Active CETIRIZINE 10 mg 1 tab(s) orally BID for 90 days Active Immunizations Vaccine Route Administration Date Status Comme nts NOC PedvaxHIB IM Intramuscular 04/30/2023 Administered Social History Tobacco Use: Social History Observation Description Date Details (start date - stop date) Never Smoker NA - NA Smoking Smart Form: Question Answer Notes Are you a: never smoker Vital Signs Blood pressure systolic 105 mm Hg 04/30/20 23 Blood pressure diastolic 69 mm Hg 023 Respiratory Rate 17 /min 04/30/2023 Height 68 in 04/30/2023 Weight 176.2 lbs 04/30/2023 BMI 26.79 kg/m2 04/30/2023 Oximetry 99 % 04/30/2023 Encounters Encounter Location Date Provider Diagnosis [facility] [address] [place] [address] 04/30/2023 Jayshree Young Other chronic sinusi tis J32.8 ; Rash and other nonspecific skin eruption R21 ; Allergic rhinitis due to pollen J30.1 ; Allergic rhinitis due to animal (cat) (dog) hair and dander J30.81 ; Other allergic rhinitis J30.89 ; Other chronic allergic conjunctivitis H10.45 ; Idiopathic urticaria L50.1 ; Hypertrophy of nasal turbinates J34.3 ; Cough, unspecified R05.9 ; Vitamin D deficiency, unspecified E55.9 ; Encounter for immunization Z23 and Encounter for antibody response examination Z01.84 Assessments Encounter Date Diagnosis (ICD Code) Assessment Notes Treatment Notes Treatment Clinical Notes Section Notes 04/30/2023 Other chronic sinusitis (ICD-10 - J32.8) Elizabeth returns today doing well. No interval infections. -Prior PI work-up showed inadequate Pneumococcal protection - hib not checked. Pneumovax booster received last visit. Titer reviewed showed 6 of 23 protected, increased to 16 of 23 protected - discussed additional booster with Prevnar. Hib titer is not protected. Recommend booster with recheck of titers in 4-6 weeks -Recheck labs in 4-6 weeks 04/30/2023 Rash and other nonspecific skin eruption (ICD-10 - R21) LIfelong sensitive skin with random eczematous breakouts, -recommend patch testing -continue unscented dye free products 04/30/2023 Allergic rhinitis due to pollen (ICD-10 - J30.1) Elizabeth has mild atopic disease. Doing well on new medication regimen -ImmunoCaps neg -she is doing well on meds - discussed starting allergy shots 04/30/2023 Allergic rhinitis due to animal (cat) (dog) hair and dander (ICD-10 - J30.81) Follow allergen avoidance, meds and consider SCIT as an adjunctive treatment to current regimen. Await labs 04/30/2023 Other allergic rhinitis (ICD-10 - J30.89) Follow allergen avoidance, meds and consider SCIT as an adjunctive treatment to current regimen. Await labs 04/30/2023 Other chronic allergic conjunctivitis (ICD-10 - H10.45) Given ocular signs and symptoms I encouraged allergy avoidance measures and meds as above. If symptoms persist, consider adding additional medications including intraocular antihistamine/mast cell stabilizer, PRN and consider SCIT as an adjunctive measure 04/30/2023 Idiopathic urticaria (ICD-10 - L50.1) Chronic hives with episodic swelling of eyelids since 2011 -labs to check underlying mast cell, autoimmune, and thyroid conditions. No hives on new medication regimen. Labs show elevated thyroglobluin ab - seen by Endocrinology evaluation -TSH and thyroid hormone normal - no treatment needed at this time. 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 -likely has upper airway cough syndrome -consider other ddx such as occult GERD 04/30/2023 Vitamin D deficiency, unspecified (ICD-10 - E55.9) Historically low - Vitamin D at recent check was 20 -S/P 50,000 IU weekly x 8 weeks. now on 5000 IU QD - last check 38. continue daily supplementation -recheck now 04/30/2023 Encounter for immunization (ICD-10 - Z23) 04/30/2023 Encounter for antibody response examination (ICD-10 - Z01.84) 04/30/2023 Other Plan Of Treatment Medication Medication Name Sig Start Date Stop Date Notes AZELASTINE HYDROCHLORIDE NATY AL 137 mcg/inh 2 spray(s) intranasally 2 times a day for 30 day(s) FLUTICASONE NASAL 50 mcg/inh 2 spray(s) in each nostril BID for 30 day(s) NASAL WASHES N/A as directed intranas ally as needed for 30 D3 125 mcg 1 tab(s) orally once a day for 30 day(s) MONTELUKAST 10 mg 1 tab(s) orally once a day for 90 days PEPCID 20 mg 1 tab(s) orally 2 ti mes a day for 90 days CETIRIZINE 10 mg 1 tab(s) orally BID for 90 days Treatment Notes Assessment Notes Other chronic sinusitis Elizabeth returns today doing well. No interval infections. -Prior PI work-up showed inadequate Pneumococcal protection - hib not checked. Pneumovax booster received last visit. Titer reviewed showed 6 of 23 protected, increased to 16 of 23 protected - discussed additional booster with Prevnar. Hib titer is not protected. Recommend booster with recheck of titers in 4-6 weeks -Recheck labs in 4-6 weeks Rash and other nonspecific skin eruption LIfelong sensitive skin with random eczematous breakouts, -recommend patch testing -continue unscented dye free products Allergic rhinitis due to pollen Elizabeth has mild atopic disease. Doing well on new medication regimen -ImmunoCaps neg -she is doing well on meds - discussed starting allergy shots Allergic rhinitis due to ani mal (cat) (dog) hair and dander Follow allergen avoidance, meds and consider SCIT as an adjunctive treatment to current regimen. Await labs Other allergic rhinitis Follow allergen avoidance, meds and consider SCIT as an adjunctive treatment to current regimen. Await labs Other chronic allergic conjunctivitis Gi luis ocular signs and symptoms I encouraged allergy avoidance measures and meds as above. If symptoms persist, consider adding additional medications including intraocular antihistamine/mast cell stabilizer, PRN and consider SCIT as an adjunctive measure Idiopathic urticaria Chronic hives with episodic swelling of eyelids since 2011 -labs to check underlying mast cell, autoimmune, and thyroid conditions. No hives on new medication regimen. Labs show elevated thyroglobluin ab - seen by Endocrinology evaluation -TSH and thyroid hormone normal - no treatment needed at this time. 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 -likely has upper airway cough syndrome -consider other ddx such as occult GERD Vitamin D deficiency, unspecified Historically low - Vitamin D at recent check was 20 -S/P 50,000 IU weekly x 8 weeks. now on 5000 IU QD - last check 38. continue daily supplementation -recheck now Pending Test Test Name Order Date STREPTOCOCCUS PNEUMONIAE IGG AB (23 SERO TYPES) 04/30/2023 VITAMIN D, 25-OH, TOTAL, IA 04/30/2023 HAEMOPHILUS INFLUENZAE B ANTIBODY, IGG 1 06/30/2022 Next Appt Details Follow Up: 3 Months, Reason: Evaluation and Management,Laboratory Review Progress Notes * Elizabeth SINGH JDOB:1989 (33 yo F)Acc No.[id number]:04/30/2023 Progress Notes Patient:?Valeriy Singhanna J Provider:?Jayshree Moran PA-C :1990???Age:33 Y???Sex:Female D ate:04/30/2023 [id number] Pcp:Armando Gongora Subjective: * Chief Complaints: * ???[facility] follow-up, with chron ic sinus symptoms and infections. S/P sinus surgery by Dr. Gandhi in 2011. Wants to hold off on SCIT as she is doing so well. Chronic hives since 2011 with episodic swelling of eyelids at least 10 times in life. Doing better on new regimen - no interval hives. Seen by Endocrinology as thryoid ab >1000Taking Vitamin D3. finished 8 weeks of loading. Now on 5000 IU. Pneumovax given last visit. Hib not drawn, rechecked which was low. Has yet to obtain booster. No interval infections.Random rashes with various products. Trying to stick to fragrance free products - interested in patch testing MA evaluation for screening to assess suitability for vaccine administration * HPI: ???*Introduction:?I had the pleasure of seeing?Elizabeth Singh a 33 year-old WF with a history of recurrent chronic sinusitis, seasonal cough, chronic hives and rashes here today for allergy evaluation and management. Elizabeth is alonefor today's visit. No interval hives but still having various rashes with products. Trying to stick to unscented dye free products.?Descriptors of her upper airways symptoms are outlined below. Aeroallergen skin testing was completed at initial visit, and was positive to trees, mold, dust mites, and mouse. Started new medication regimen with benefit. Considering shots. She has had symptoms since childhood. Feels that Spring is the worst time of the year with increased drainage and cough. Also admits to constant itching and sneezing. Uses Zyrtec, Joyce, Benadryl, and Flonase. In 2018 she had sinus surgery by Dr. Gandhi. [place] it was a hard recovery but did help. She still is having antibiotics for sinus infections at least twice a year. She was given albuterol in the 3rd grade but doesn't recall specifics. Typically with URIs and allergen exposure has cough which she perceives is due to draiange. No recurrent PNA or bronchitis.? Since 2012 she has had intermittent chronic hives, with welts lasting < 24 hrs on average. She also has rough patches of eczema seasonally. Using moisturizers daily. Both types of rashes are prurtic. Heat is a clear trigger for hives. Also certain shower products cause rash. No respiratory or GI symptoms with hives. Has experienced at least 10 episodes of eyelid swelling. Having less hives on new allergy meds. Has completed 8 weeks of Vitamin D loading. Now on 5000 IU. Received Pneumovax at prior visit. Today, she reports no fevers, chills, night sweats or other constitutional symptoms.? * ROS:?ALLERGY:?Positive?per the HPI and history, otherwise unremarkable.?runny nose?Yes.?scratchy throat?Yes.?itchy eyes?Yes.?ear fullness?No.?sinus congestion?Yes.?SPECIAL SENSES:?Positve for?none.?cataracts?No.?glaucoma?No.?loss of hearing?No.?itching in ears?No.?ringing in ears?No.?loss of balance?No.?loss of smell?No.?dry eyes?Yes.?excessive tearing?No.?itching eyes?Yes.?loss of taste?No.?conjunctivitis?No.?ear infections?No.?CONSTITUTIONAL:?weight gain?No.?loss of appetite?No.?fever?No.?weakness?Yes.?weight loss?No.?fatigue?Yes.?night sweats?Yes.?Positive for?none.?ENT:?cold?No.?cough?No.?epistaxis?No.?hearing loss?No.?change in voice?No.?sore throat?No.?ringing in ears?No.?sinus pain?Yes.?Positive?per the HPI and history, otherwise unremarkable.?RESPIRATORY:?shortness of breath?No.?chest pain?No.?chest congestion?No.?cough?Yes.?Positive?per the HPI and history, otherwise unremakable.?OPHTHALMOLOGY:?diminished vision?No.?eye irritation?Yes.?drainage from eyes?Yes.?blurring of vision?No.?seasonal eye sx?No.?Positive for?per the HPI and history, othewise unremarkable.?itching?Yes.?sensitivity to light?Yes.?discharge?No.?watering?Yes.?swelling of the eyelids?No.?ENDOCRINOLOGY:?fatigue?Yes.?polydipsia?Yes.?polyuria?Yes.?weight loss?No.?sleep disturbance?Yes.?cold intolerance?No.?heat intolerance?No.?diabetes?No.?Positive for?none.?CARDIOLOGY:?chest pain?No.?palpitations?No.?leg edema?No.?dizziness?No.?shortness of breath?No.?Positive for?none.?GASTROENTEROLOGY:?dysphagia?No.?abdominal pain?No.?nausea?Yes.?vomiting?No.?constipation?Yes.?diarrhea?Yes.?blood in stool?No.?indigestion?Yes.?hemorrhoids?Yes.?Positive for?none.?UROLOGY:?difficulty urinating?No.?blood in urine?No.?frequent urination?No.?urinary incontinence?No.?recurrent UTI?No.?Positive for?none.?DERMATOLOGY:?rash?Yes.?mole?Yes.?lumps?No.?dry or sensitive skin?Yes.?hives (urticaria)?Yes.?acne?Yes.?skin cancer?No.?Positive for?per the HPI and history, otherwise unremakable.?NEUROLOGY:?headache?Yes.?tingling numbness?No.?seizures?No.?insomnia?No.?memory loss?No.?dizziness?No.?gait abnormality?No.?Positive for?none.?HEMATOLOGY/LYMPH:?Positive for?none.?MUSCULOSKELETAL:?joint swelling?No.?joint pain?Yes.?leg cramps?No.?joint stiffness?No.?sciatica?Yes.?osteoporosis?No.?fracture?No.?carpal tunnel?No.?gout?No.?Positive for?none.?PSYCHOLOGY:?high stress level?Yes.?depression?Yes.?sleep disturbances?Yes.?suicidal ideation?No.?eating disorder?No.?mental or physical abuse?No.?anxiety?Yes.?Positive for?none.?FEMALE REPRODUCTIVE:?heavy periods?No.?hot flashes?Yes.?abnormal vaginal discharge?Yes.?sexually active?Yes.?infertility?No.?frequent yeat infections?No.?pelvic pain?No.?breast pain?No.?nipple discharge No.?Are you ??No.?Are you planning on a future pregancy??No.?All other review of systems per the HPI and history, othwise unremarkable. * Medical History:? * Surgical History:? 2016sinus surgery 2018 * Hospitalization/Major Diagno stic Procedure:?No Hospitalization History. * Family History:?Father: dece ased, No.?Mother: , No.?Paternal Grand Father: No.?Paternal Grand Mother: No.?Maternal Grand Father: No, diagnosed with Diabetes, Heart Disease.?Maternal Grand Mother: No.?Siblings: Yes.?Children: Yes.? There is no other family history of cancer, CF, diabetes, emphysema or heart disease. * Social History:?Marital Status?What is your marital status?Alcohol Screening?Do you ever drink alcoholic beverages??Yes ?Number of drinks per occasion:?2 ?Frequency??Monthly ???Smoking?Have you ever smoked tobacco:?never smoked ?Are you a :?never smoker ???Smoking Smart Form?Are you a:?never smoker ???Recreational drug use?Have you ever used recreational drugs??No ???Details on consumption of certain products?Do you regularly consume products with aspartame; Equal or NutraSweet??No ?Do you regularly consume products with artificial coloring??No ?Have you ever noticed worsening of your rash with these food items??No ???Exercise?What kind(s) of exercise do you perform regularly??walking,jogging,competitive running,biking,weight training,yoga,cardio,pilates,rose ?How often do you perform this exercise??2-5 x per year ???Are any of the following personal care products containing fragrance, dye or preservatives used regularly?Shampoo:?Yes ?Conditioner:?Yes ?Soap:?Yes ?Laundry Detergent:?Yes ?Fabric Softener:?No ?Deodorant:?Yes ?Perfume, cologne, after shave:?Yes ?Air freshners or other scented products:?Yes ?Hair coloring dyes or rinses:?No ?Other:?No ???Occupation?Are you currenly employed??Yes ?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 number of years?2 ?Do you believe that your current or previous occupation has any bearing on your illness??No ?How much work have you missed due to breathing difficulty within the past year??more than 1 month ?Do you have any pending or planned legal action against your current or former employer which pertains to your medical illness??No ?Do you anticipate that your evaluation will be used in any legal action against your current employer or former employer??No ?Have you had any job with high exposure to fumes, chemicals, dust or other noxious substances??No ?Are you currently a student??No ???Environmental History?Living environment:?private home,with pets,with relatives ?Where is the home located??suburb ?Age of home:?31 ?How long have you lived there??0-1 years ?How many people live in the home??5 ???Home description?Basement:?No ?Any water damage in basement??No ?Smokers in the home??No ?Smokers outside the home??No ?Air Conditioning??Yes ?Central Air??Yes ?Forced air heating??Yes ?Gas or electric??electric ?Fireplace??Yes ?Used how often??year round ?Wood burning stove??No ?Do you vacuum the home??Yes ?Air purification systems??No ?Pillow and mattress dust-proof encasings??Yes ?Do you use a humidifier??Yes ?Whole house or room??room humidifier ?Does it have a humidistat??No ?Is it used year-round, seasonal, or as needed??as needed ?Is the humidifier cleaned regularly??Yes ?Do you own any pets??Yes ?What kind(s)? (click all that apply)?dog ?Where do your pets sleep??other room in home ?Fabric softeners used??No ?Plants in the home??No ?Is there carpeting in your bedroom??Yes ?Age of carpet??5 ?Do you have [id number] carpeting??No ?What is the age of your mattress (years)??5 ?What material(s) are used to manufacture your bedding and pillow??natural fiber (e.g. cotton) ?What is the age of your pillow (years)??1 ?What material are your bedding items made of??natural fiber (e.g. cotton) ?Do you sleep with quilts or blankets or a duvet??Yes ?What material??natural fiber (e.g. cotton) ?How many dogs??1 * Medications:?Takingdexmethyl phenidate 20 mg capsule, extended release 1 cap(s) orally once a day (in the morning)Cetirizine 10 mg tablet 1 tab(s) orally BIDPepcid 20 mg tablet 1 tab(s) orally 2 times a daymontelukast 10 mg tablet 1 tab(s) orally once a dayD3 125 mcg tablet 1 tab(s) orally once a dayescitalopram 20 mg tablet 1 tab(s) orally once a dayOmega-3 1000 mg capsule 1 cap(s) orally once a day, Notes: takes bidProbiotic Formula multivitamin Multiple Vitamins tablet 1 tab(s) orally once a dayCetirizine 10 mg tablet 1 tab(s) orally BIDPepcid 20 mg tablet 1 tab(s) orally 2 times a daymontelukast 10 mg tablet 1 tab(s) orally once a dayNasal Washes N/A 1 quart of sterilized tap water or distilled water, 1 tsp NaCl, 1 pinch of baking soda as directed intranasally as neededfluticasone nasal 50 mcg/inh spray 2 spray(s) in each nostril BIDAzelastine Hydrochloride Nasal 137 mcg/inh spray 2 spray(s) intranasally 2 times a dayTaking dexmethylphenidate 20 mg capsule, extended release 1 cap(s) orally once a day (in the morning)Taking Cetirizine 10 mg tablet 1 tab(s) orally BIDTaking Pepcid 20 mg tablet 1 tab(s) orally 2 times a dayTaking montelukast 10 mg tablet 1 tab(s) orally once a dayTaking D3 125 mcg tablet 1 tab(s) orally once a dayTaking escitalopram 20 mg tablet 1 tab(s) orally once a dayTaking Gaastra-3 1000 mg capsule 1 cap(s) orally once a day, Notes: takes bidTaking Probiotic Formula Taking multivitamin Multiple Vitamins tablet 1 tab(s) orally once a dayTaking Cetirizine 10 mg tablet 1 tab(s) orally BIDTaking Pepcid 20 mg tablet 1 tab(s) orally 2 times a dayTaking montelukast 10 mg tablet 1 tab(s) orally once a dayTaking Nasal Washes N/A 1 quart of sterilized tap water or distilled water, 1 tsp NaCl, 1 pinch of baking soda as directed intranasally as neededTaking fluticasone nasal 50 mcg/inh spray 2 spray(s) in each nostril BIDTaking Azelastine Hydrochloride Nasal 137 mcg/inh spray 2 spray(s) intranasally 2 times a dayNot-Taking/PRNBenadryl Allergy 25 mg tablet 1 tab(s) orally 3 times a dayMedication List reviewed and reconciled with the patientNot-Taking/PRN Benadryl Allergy 25 mg tablet 1 tab(s) orally 3 times a dayMedication List reviewed and reconciled with the patient * Allergies:?N.K.D.A.no[Allerg ies Verified] Objective: * Vitals:?BP:105/69, HR:61 /mi n, RR:17 /min, Pulse Oximetry:99 %, Ht: 68 in, Wt: 176.2 lbs, BMI:26.79 Index. * Examination: ???General examination: ?General appearance:?pleasant, well-developed, well-nourished.?HEENT:?pupils equal, round, and reactive to light and accommodation, conjunctiva are injected bilaterally, no tenderness to palpation of the sinuses, TM's without evidence of acute infection, turbinates 2+ swollen and pale inferiorly bilaterally, clear rhinorrhea is present, no polyps noted, no septal perforation, posterior oropharynx is erythematous and cobblestoning is present, erythema on pharyngeal wall, no exudates, no tongue swelling, and uvula is midline.?Oral cavity:?normal, no lesions.?Neck, thyroid :?supple, non-tender, no anterior cervical lymphadenopathy.?Breasts :?not performed.?Heart:?RRR, S1-S2, no murmurs, no rubs, no gallops.?Lungs:?clear to auscultation and percussion in all lung ko, no wheezes or crackles.?Abdomen:?soft, NT/ND, normal active bowel sounds.?Neurologic exam:?unremarkable.?Skin:?well dermacated erythematous plaque on R AC with scaling.?Peripheral pulses:?normal (2+) bilaterally.?Back:?normal.?Extremities:?normal ROM, no clubbing, no cyanosis, no edema.?Genitalia:?not performed.? Assessment: * Assessment: 1.?Other chronic sinusitis - J32.8 (Primary)?2.?Rash and other nonspecific skin eruption - R21?3.?Allergic rhinitis due to pollen - J30.1?4.?Allergic rhinitis due to animal (cat) (dog) hair and dander - J30.81?5.?Other allergic rhinitis - J30.89?6. Other chronic allergic conjunctivitis - H10.45?7.?Idiopathic urticaria - L50.1?8.?Hypertrophy of nasal turbinates - J34.3?9.?Cough, unspecified - R05.9?10.?Vitamin D deficiency, unspecified - E55.9?11.?Encounter for immunization - Z23?12. Encounter for antibody response examination - Z01.84? Plan: * Treatment: 2.?Rash and other nonspecifi c skin eruption? Notes: LIfelong sensitive skin with random eczematous breakouts, -recommend patch testing -continue unscented dye free products?? 3.?Allergic rhinitis due to pollen? Continue Nasal Washes 1 quart of sterilized tap water or distilled water, 1 tsp NaCl, 1 pinch of baking soda, N/A, as directed, intranasally, as needed, 30, QS, Refills PRN;?Continue fluticasone nasal spray, 50 mcg/inh, 2 spray(s), in each nostril, BID, 30 day(s), 1, Refills 0;?Continue Azelastine Hydrochloride Nasal spray, 137 mcg/inh, 2 spray(s), intranasally, 2 times a day, 30 day(s), 1, Refills 3.?? Notes: Elizabeth has mild atopic disease. Doing well on new medication regimen -ImmunoCaps neg -she is doing well on meds - discussed starting allergy shots?? 4.?Allergic rhinitis due to animal (cat) (dog) hair and dander? Notes: Follow allergen avoidance, meds and consider SCIT as an adjunctive treatment to current regimen. Await labs?? 5.?Other allergic rhinitis? Notes: Follow allergen avoidance, meds and consider SCIT as an adjunctive treatment to current regimen. Await labs?? 6.?Other chronic allergic co njunctivitis? Notes: Given ocular signs and symptoms I encouraged allergy avoidance measures and meds as above. If symptoms persist, consider adding additional medications including intraocular antihistamine/mast cell stabilizer, PRN and consider SCIT as an adjunctive measure?? 7.?Idiopathic urticaria? Refill Cetirizine tablet, 10 mg, 1 tab(s), orally, BID, 90 days, 180 Tablet, Refills 1;?Refill Pepcid tablet, 20 mg, 1 tab(s), orally, 2 times a day, 90 days, 180 Tablet, Refills 1;?Refill montelukast tablet, 10 mg, 1 tab(s), orally, once a day, 90 days, 90 Tablet, Refills 1.?? Notes: Chronic hives with episodic swelling of eyelids since 2011 -labs to check underlying mast cell, autoimmune, and thyroid conditions. No hives on new medication regimen. Labs show elevated thyroglobluin ab - seen by Endocrinology evaluation -TSH and thyroid hormone normal - no treatment needed at this time. PCP following -continue high dose antihistamines with Zyrtec BID, Pepcid BID, and Singulair QD discussed side effects of meds -discussed other triggers such as alcohol, stress, heat, NSAIDs, smoking -consider Xolair for refractory of symptoms?? 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 9.?Cough, unspecified? Notes: Seasonal coughing due to draiange with albuterol use in 3rd grade but limited hx known -spirometry today with normal FEV1, FVC, and FEV%. -likely has upper airway cough syndrome -consider other ddx such as occult GERD?? 10.?Vitamin D deficiency, un specified? Continue D3 tablet, 125 mcg, 1 tab(s), orally, once a day, 30 day(s), 30.?LAB: VITAMIN D, 25-OH, TOTAL, IA Notes: Historically low - Vitamin D at recent check was 20 -S/P 50,000 IU weekly x 8 weeks. now on 5000 IU QD - last check 38. continue daily supplementation -recheck now?? * Immunizations:? NOC PedvaxHIB : 0.5 mL (Route: Intramuscular) given by Jayshree Moran PA-C, TELLO on Left Arm * Procedure Codes:?G8427 DOC M EDS VERIFIED W/PT OR [id number] NOC Pedvax [id number] PT-FOCUSED [facility] RISK [id number] Addy Moran Incident-[id number] FLU IMMUNIZE ORDER/[id number] Single or Combination * Preventive Medicine:? ??Counseling:?Medication instruction:?Nasal steroid instruction: avoid septum, Watch for side effects of prescribed medications.?Education:?Our staff spent an additional 30 minutes in direct contact with the patient educating them on their current diagnoses and proper treatment and prevention of symptoms and the proper use of medications.?Education 2:?Our staff discussed the appropriate allergen avoidance measures and medication utilization including upper airway hygiene with daily nasal washes given the patient's clinical status and diagnoses.?Care goal follow up plan?BMI management provided?Yes ?Above Normal BMI Follow-up?Dietary management education, guidance, and counseling ?BP Management:?PRE-HYPERTENSIVE FOLLOW-UP PLAN:?Follow-up 1 month ?REFERRAL TO ALTERNATIVE / PRIMARY CARE PROVIDER:?Referral to general physician * Follow Up:?3 Months (Reason: Evaluation and Management,Laboratory Review) * Billing Information: * Visit Code:? 73469 Office Visit, Est Pt., Level 4. Modifiers: 25 * Procedure Codes:? G8427 DOC MEDS VERIFIED W/[place]. [address] NOC Pedvax HIB. 02129 PT-FOCUSED [facility] RISK ASSMT. 41795 Addy Moran Incident-to. G8482 FLU IMMUNIZE ORDER/ADMIN. [id number] Immunization Administration (one vaccine). * LOGY PHYSICIAN ASSISTANT Sign off status: Completed true * Provider:?Jayshree Moran PA-C Date:? Generated for Nichelle khoury/Wilman/eTransmitting on:?06/27/2024 06:03 PM ONCOLOGY PHYSICIAN ASSISTANT History and Physical Notes * HPI (History of Present Illness) Category Sub-Category Detail Notes Category Not es *Introduction I had the pleasure o f seeing Elizabeth Singh a 33 year-old WF with a history of recurrent chronic sinusitis, seasonal cough, chronic hives and rashes here today for allergy evaluation and management. Elizabeth is alonefor today's visit. No interval hives but still having various rashes with products. Trying to stick to unscented dye free products. Descriptors of her upper airways symptoms are outlined below. Aeroallergen skin testing was completed at initial visit, and was positive to trees, mold, dust mites, and mouse. Started new medication regimen with benefit. Considering shots. She has had symptoms since childhood. Feels that Spring is the worst time of the year with increased drainage and cough. Also admits to constant itching and sneezing. Uses Zyrtec, Joyce, Benadryl, and Flonase. In 2018 she had sinus surgery by Dr. Gandhi. [place] it was a hard recovery but did help. She still is having antibiotics for sinus infections at least twice a year. She was given albuterol in the 3rd grade but doesn't recall specifics. Typically with URIs and allergen exposure has cough which she perceives is due to draiange. No recurrent PNA or bronchitis. Since 2012 she has had intermittent chronic hives, with welts lasting < 24 hrs on average. She also has rough patches of eczema seasonally. Using moisturizers daily. Both types of rashes are prurtic. Heat is a clear trigger for hives. Also certain shower products cause rash. No respiratory or GI symptoms with hives. Has experienced at least 10 episodes of eyelid swelling. Having less hives on new allergy meds. Has completed 8 weeks of Vitamin D loading. Now on 5000 IU. Received Pneumovax at prior visit. Today, she reports no fevers, chills, night sweats or other constitutional symptoms Examination Category Sub-Category Detail Notes Category Not es General examination HEENT: pupils equal , round, and reactive to light and accommodation, conjunctiva are injected bilaterally, no tenderness to palpation of the sinuses, TM's without evidence of acute infection, turbinates 2+ swollen and pale inferiorly bilaterally, clear rhinorrhea is present, no polyps noted, no septal perforation, posterior oropharynx is erythematous and cobblestoning is present, erythema on pharyngeal wall, no exudates, no tongue swelling, and uvula is midline Neck, thyroid : supple, non-tender, no anterior cervical lymphadenopathy Heart: RRR, S1-S2, no murmu rs, no rubs, no gallops Lungs: clear to auscultatio n and percussion in all lung ko, no wheezes or crackles Abdomen: soft, NT/ND, normal active bowel sounds Extremities: normal ROM, no clubb ing, no cyanosis, no edema General appearance: pleasant, well-devel oped, well-nourished Skin: well dermacated eryt hematous plaque on R AC with scaling Neurologic exam: unremarkable Oral cavity: normal, no lesions Breasts : not performed Peripheral pulses: normal (2+) bilatera lly Back: normal Genitalia: not performed
--- OUTSIDE RECORDS SUMMARY | 2024-06-27 18:04 | XMS_ITS | Patient Health Record ---
Author Organization [facility] Address [address] [place] [address] Care Team Providers Care Utility Gelatin Maker Name Role Phone Armando Gongora Primary Care Provider UnavailJayshree Bhandari Unavailable [phone] [employer], Provider Unavailable Unavailab le Allergies No Known Allergies Reason For Referral No Information Medications Medication SIG (Take, Route, Frequency, Duration) Notes Start Date End Date Status Montelukast Sodium 10 MG 1 tab(s) orally once a day for 90 days Active Pepcid 20 MG 1 tab(s) orally 2 times a day for 90 days Active FLUTICASONE NASAL 50 mcg/inh 2 spray(s) in each nostril BID for 30 day(s) Active CETIRIZINE 10 mg 1 tab(s) orally BID for 90 days Active DEXMETHYLPHENIDATE 20 mg 1 cap(s) orally once a day (in the morning) Active D3 125 mcg 1 tab(s) orally once a day for 30 day(s) Active Pepcid 20 MG 1 tab(s) orally 2 times a day for 90 days Active MONTELUKAST 10 mg 1 tab(s) orally once a day for 90 days Active Cetirizine HCl 10 MG 1 tab(s) orally BID for 90 days Active PEPCID 20 mg 1 tab(s) orally 2 times a day for 90 days Active Multivitamin - 1 tab(s) orally once a day for 30 day(s) Active Probiotic Formula *Please review and pick correct strength-formula tion from JAYS options. If intended option is not shown, discontinue and re-order from iAcademic Search* Active [place]-3 1000 MG 1 cap(s) orally once a day for 30 day(s) takes bid Active ESCITALOPRAM 20 mg 1 tab(s) orally once a day Active Escitalopram Oxalate 20 MG 1 tab(s) orally once a day Active Dexmethylphenidate HCl 20 MG 1 CAP(S) ORALLY ONCE A DAY (IN THE MORNING) *Please review and pick correct strength-formula tion from JAYS options. If intended option is not shown, discontinue and re-order from Quick Search* Active Fluticasone Propionate 50 MCG/ACT 2 spray(s) in each nostril BID for 30 day(s) Active NASAL WASHES N/A DIRECTED INTRANASALLY NEEDED for 30 *Please review for potential replacement for e-prescription and drug interaction check* Active D3 125 MCG 1 TAB(S) ORALLY ONCE A DAY for 30 DAY(S) *Please review and pick correct strength-formula tion from JAYS options. If intended option is not shown, discontinue and re-order from [employer] Search* Active AZELASTINE HYDROCHLORIDE NASAL 137 mcg/inh 2 spray(s) intranasally 2 times a day for 30 day(s) Active Azelastine HCl 137 MCG/SPRAY 2 spray(s) intranasally 2 times a day for 30 day(s) Active PEPCID 20 mg 1 tab(s) orally 2 times a day for 90 days Active MONTELUKAST 10 mg 1 tab(s) orally once a day for 90 days Active MULTIVITAMIN Multiple Vitamins 1 tab(s) orally once a day for 30 day(s) Active CETIRIZINE 10 mg 1 tab(s) orally BID for 90 days Active [place]ME[place]-3 1000 mg 1 cap(s) orally once a day for 30 day(s) takes bid Active PROBIOTIC FORMULA Ac tive Cetirizine HCl 10 MG 1 tab(s) orally BID for 90 days Active BENADRYL ALLERGY 25 mg 1 tab(s) orally 3 times a day Not-Taking Benadryl Allergy 25 MG 1 tab(s) orally 3 times a day Not-Taking Montelukast Sodium 10 MG 1 tab(s) orally once a day for 90 days Active Immunizations Vaccine Route Administration Date Status Comme nts NOC PedvaxHIB IM Intramuscular 04/30/2023 Administered NOC Pneumovax 23 IM Intramuscular 02/13/2022 Administered Social History Tobacco Use: Social History Observation Description Date Details (start date - stop date) Never Smoker NA - NA Smoking Smart Form: Question Answer Notes Are you a: never smoker Problems Problem Type SNOMED Code ICD Code Onset Dates Problem Status W/U Status Risk Notes Problem Idiopathic urticaria (84320537) Idiopathic urticaria (L50.1) Active confirmed Problem Eruption of skin (561890408) Rash and other nonspecific skin eruption (R21) Active confirmed Problem Anxiety disorder (883956347) Anxiety disorder, unspecified (F41.9) Active confirmed Problem Chronic allergic conjunctivitis (33913790) Other chronic allergic conjunctivitis (H10.45) Active confirmed Problem Allergic rhinitis (13324188) Other allergic rhinitis (J30.89) Active confirmed Problem Allergic rhinitis caused by pollen (disorder) (72985660) Allergic rhinitis due to pollen (J30.1) Active confirmed Problem Allergic rhinitis caused by animal hair and dander (395833345002105) Allergic rhinitis due to animal (cat) (dog) hair and dander (J30.81) Active confirmed Problem Chronic sinusitis (19601208) Other chronic sinusitis (J32.8) Active confirmed Problem Vitamin D deficiency (66200041) Vitamin D deficiency, unspecified (E55.9) Active confirmed Problem Cough (finding) (40837057) Cough, unspecified (R05.9) Active confirmed Encounters Encounter Location Date Provider Diagnosis [address] [address] 11/14/2023 Provider [facility] Allergic rhinitis due to pollen J30.1 ; Idiopathic urticaria L50.1 and Vitamin D deficiency, unspecified E55.9 Assessments Encounter Date Diagnosis (ICD Code) Assessment Notes Treatment Notes Treatment Clinical Notes Section Notes 11/14/2023 Allergic rhinitis due to pollen (ICD-10 - J30.1) 11/14/2023 Idiopathic urticaria (ICD-10 - L50.1) 11/14/2023 Vitamin D deficiency, unspecified (ICD-10 - E55.9) Plan Of Treatment Pending Test Test Name Order Date STREPTOCOCCUS PNEUMONIAE IGG AB (23 SERO TYPES) 08/14/2022 STREPTOCOCCUS PNEUMONIAE IGG AB (23 SERO TYPES) 04/30/2023 VITAMIN D, 25-OH, TOTAL, IA 04/30/2023 HAEMOPHILUS INFLUENZAE B ANTIBODY, IGG 1 06/30/2022 HAEMOPHILUS INFLUENZAE B ANTIBODY, IGG 0 08/14/2022 Insurance Providers Payer Name Payer Address Payer Phone Subscriber Number Group Number Insured Name Patient Relationship to Insured Coverage Start Date Coverage End Date [facility] [address] [place] [phone] [id number] Elizabeth Spears Self - patient is the insured 4 Medical (General) History Medical History History ICD Code Anxiety disorder, unspecified F41.9 ADHD Surgical History Surgery Date(Month/Year) 2016 sinus surgery 2018
--- OUTSIDE RECORDS SUMMARY | 2024-06-27 18:04 | XMS_ITS | Clinical Summary ---
Author Organization [facility] Address [address] [place] [address] Care Team Providers Care Water Purification Chemist Name Role Phone [facility], [address] [place] [address] Primary Care Prov ider Source Comments [facility],non-owned Affiliates and Associated Physician Practices is amultiple site organization consisting of ambulatory clinics and hospital sitesin [place], [place], [place] and [place]. This disclosure is being madepursuant to the Care Everywhere program and may not contain all information available regarding this patient. Last updated 18.[facility] [employer] Allergies Active Allergy Reactions Criticality Noted Date [...] Health Maintenance Due Date Last Done Comments PAP SMEAR 1991 HIV SCREENING 2006 HEPATITIS C SCREENING 12/30/2008 DTAP/TDAP/TD VACCINES (1 - Tdap) 2010 HEPATITIS B VACCINE (1 of 3 - 19+ 3-dose series) 2010 COVID-19 VACCINE (1 - 2023-2 5 season) 2024 INFLUENZA VACCINE (#1) 2024 DEPRESSION SCREENING 06/01/2024 ZOSTER VACCINE (1 of 2) 2041 HIB VACCINE Aged Out No longer eligi ble based on patient's age to complete this topic HPV VACCINE Aged Out No longer eligi ble based on patient's age to complete this topic MENINGOCOCCAL (Group B) VACCINE Aged Out No longer eligible based on patient's age to complete this topic MENINGOCOCCAL VACCINE Aged Out No kaycee germaine eligible based on patient's age to complete this topic PNEUMOCOCCAL VACCINE Aged Out No long er eligible based on patient's age to complete this topic Care Teams Water Purification Chemist Relationship Specialty [facility] [address] [facility], [place], [place] [id number] PCP - General Family Medicine 07/14/19
--- OUTSIDE RECORDS SUMMARY | 2024-06-27 18:04 | XMS_ITS | Data Portability ---
Author Organization [facility] ([facility]), Main Office Address [address] [place] [address] Assessment No assessment recorded. Plan of Treatment Reminders Order Date Submit Date Provider Last Modified By Organization Details Last Modified Time Details Appointments None recorded. Lab None recorded. Referral sleep medicine referral - restless sleep. Anxiety and depression, Sleep walking. *Please call patient to schedule* 2022 023 [facility] ([facility]), [address] [place], [address], 3 15:09:31 psychiatris t referral - states she is concerned for ADHD. 2022 023 [facility], [facility]5 [facility], [facility] [address], [place], [address], 3 09:52:22 Procedures None recorded. Surgeries None recorded. Imaging None recorded. Medication Orders escitalopra m 10 mg tablet 2022 023 [id number], [address] [place] [address], [place], [id number], 3 16:17:41 escitalopra m 10 mg tablet 2022 023 [id number], [address], [place], [id number], 3 09:46:54 escitalopra m 10 mg tablet 2022 023 [facility] #[id number], [address], [place], [id number], 09:31:40 Patient TargetsNo targets recorded. Patient Instructions Encounter Date Encounter Id Patient Instructions Last Modified By Organization Details Last Modified Time 09/11/2022 [id number] 6 week fu for anxiety/sleep disorder Not available 09/11/2022 16:20:15 10/22/2022 [id number] anxiety, sleep walking 3 mo. Not available 10/22/2022 09:53:01 01/14/2023 [id number] 6 mo fu anxiety, sleep walking, gerd, vit d def, allergies. Not available 01/14/2023 09:39:24 Reason for Referral Sleep Medicine Referral for Restless sleep restless sleep. Anxiety and depression, Sleep walking. *Please call patient to schedule* Referring Physician: [facility], Encounter Date: 09/11/2022 Psychiatrist Referral for Po or concentration states she is concerned for ADHD. Referring Physician: [facility], Encounter Date: 01/14/2023 Results Created Date Observation Date Name Description Value Unit Range Abnormal Flag Note LastModifiedBy Organization Detail LastModifiedTime 10/16/1910/02/2022 home sleep study No observ ation record ed. [facility] [address], [place], [address], 10/15/2022 19:53:48 10/16/1910/02/2022 home sleep study No observ ation record ed. [facility] [address], [place], [address], 10/15/2022 19:54:11 Result Notes None recorded. Problems Name Problem SNOMED Code Status Onset Date Resolution Date Notes Provider Name and Address Organization Details Recorded Time Mixed anxiety and depressive disorder 707538407 Active 2022 Madina Katz, ILENE [address], [address], [place], [address] , [facility] [employer] [facility] 04/13/202 3 16:12:43 Restless sleep 47763871 Active 2022 Madina Katz NP [address], [address], [place], [address], [employer] 3 16:13:29 Sleep apnea 97552378 Active 2022 Madina Katz NP [address], [address], [place], [address], [facility] 3 15:09:53 Poor concentration 86079624 Active 2022 Madina Katz NP [address], [address], [place], [address], [facility] 3 09:24:14 Problem Notes None recorded. Procedures Surgical History Date Name Laterality Status Provider Name and Address Organization Details Recorded Time 6 section completed Madina Bustamante RN [facility] 09/11/2022 15:50:17 Imaging Results Imaging Date Name Status LastModified by Organiz ation Details LastModified Time 10/02/2022 home sleep study completed [facility] [address] [facility] [address], [place], [address], 10/15/2022 19:53:48 10/02/2022 home sleep study completed [facility] [address], [place], [address], 10/15/2022 19:54:11 Procedure Notes None recorded. Medical Equipment None Reported. Allergies Allergen ID Allergen Name Allergen Category Reaction Reaction Severity Criticality Documentation Date Start Date Code Code System Note Provider Name and Address Organization Details Recorded Time 07156 latex environme nt,medica tion rash Not available low 09/11/2022 16587 91 RxNorm Madina Katz NP [address], [address], [place], [address], [facility] 3 15:56:47 Medications Name Sig Start Date Stop Date Status Note LastModified by Organization Details LastModified Time amoxicillin 500 mg capsule TAKE 1 CAPSULE BY MOUTH EVERY 12 HOURS FOR 10 DAYS 09/11 completed Not Available Not Available Not Available cetirizine 10 mg tablet TAKE 1 TABLET BY MOUTH ONCE DAILY active Not Available Not Available No t Available benzonatate 200 mg capsule 09/11 completed Not Available Not Available Not Available prednisone 20 mg tablet TAKE 1 TABLET BY MOUTH DAILY FOR 5 DAYS 10/22 completed Not Available Not Available Not Available famotidine 20 mg tablet TAKE 1 TABLET BY MOUTH TWICE DAILY active Not Available Not Available No t Available benzonatate 100 mg capsule TAKE 1 CAPSULE BY MOUTH EVERY 8 HOURS NEEDED 09/11 completed Not Available Not Available Not Available montelukast 10 mg tablet TAKE 1 TABLET BY MOUTH EVERY DAY 09/11 completed Not Available Not Available Not Available azelastine 137 mcg (0.1 %) nasal spray USE 2 SPRAYS IN EACH NOSTRIL TWICE DAILY active Not Available Not Available No t Available fluticasone propionate 50 mcg/actuatio n nasal spray,suspen shae active Not Available Not Available Not Available loratadine 10 mg tablet 09/11 completed Not Available Not Available Not Available amoxicillin 875 mg-potassium clavulanate 125 mg tablet TAKE 1 TABLET BY MOUTH EVERY 12 HOURS FOR 10 DAYS 09/11 completed Not Available Not Available Not Available escitalopram 10 mg tablet Take 1 tablet every day by oral route. 2022 active Not Available Not Available Not Avai lable cholecalcife rol (vitamin D3) 1,250 mcg (50,000 unit) capsule TAKE 1 CAPSULE BY MOUTH 1 TIME A WEEK FOR 56 DAYS active Not Available Not Available No t Available Vitals Date Recorded Body weight Body mass index (BMI) Body height Body temperature Heart rate Respiratory rate Oxygen saturation Oxygen saturation in Arterial blood by Pulse oximetry Systolic blood pressure Diastolic blood pressure Provider Name and Address Organization Details Last Updated DateTime 3 66270.1 g 25.9 kg/m2 172.72 cm 97.9 [degF] 74 /min 16 /min 98 % 98 % 130 mm[Hg] 78 mm[Hg] Madina Bustamante RN [place] [facility] [employer] [facility] 3 15:46:50 Date Recorded Body height Body temperature Heart rate Respiratory rate Oxygen saturation Oxygen saturation in Arterial blood by Pulse oximetry Systolic blood pressure Diastolic blood pressure Provider Name and Address Organization Details Last Updated DateTime 3 172.72 cm 96.2 [degF] 56 /min 16 /min 98 % 98 % 126 mm[Hg] 86 mm[Hg] Madina Bustamante RN [facility] [employer] [facility] 3 09:28:10 Date Recorded Body mass index (BMI) Body weight Provider Name and Address Organization Details Last Updated DateTime 10/22/2022 26.2 kg/m2 02635.04 g Madina Katz NP [address] [facility], [facility] [address], [place], [address], [facility] [employer] [facility] 10/22/2022 09:45:03 Date Recorded Body height Body mass index (BMI) Body weight Body temperature Heart rate Respiratory rate Oxygen saturation Oxygen saturation in Arterial blood by Pulse oximetry Systolic blood pressure Diastolic blood pressure Provider Name and Address Organization Details Last Updated DateTime 3 172.72 cm 26.8 kg/m2 13048.9 6 g 95.8 [degF] 71 /min 16 /min 97 % 97 % 128 mm[Hg] 80 mm[Hg] Madina Bustamante RN [facility] [employer] [facility] 3 09:17:13 Social History Question Answer Notes LastModified by Organization Details LastModified Time Tobacco Smoking Status Never Smoker Madian Bustamante RN [facility] [employer] [facility] [employer] [facility] 09/11/2022 15:47:48 Do You Have An Advance Directive? Yes Information not available 09/11/2022 What Is Your Level Of Alcohol Consumption? None Information not available 09/11/2022 Is Blood Transfusion Acceptable In An Emergency? Yes Information not available 09/11/2022 What Is Your Level Of Caffeine Consumption? Occasional Coffee 1 Cup A Day Information not available 09/11/2022 What Is Your Code Status? DNR Information not available 09/11/2022 In The 14 Days Before Symptom Onset, Have You Had Close Contact With A Laboratory-confi rmed COVID-19 While That Case Was Ill? No Information not available 09/11/2022 In The 14 Days Before Symptom Onset, Have You Had Close Contact With A Person Who Is Under Investigation For COVID-19 While That Person Was Ill? No Information not available 09/11/2022 Are You Currently Employed? Yes Information not available 09/11/2022 What Type Of Diet Are You Following? REGULAR Information not available 09/11/2022 What Is The Highest Grade Or Level Of School You Have Completed Or The Highest Degree You Have Received? 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 5 Information not available 09/11/2022 On Those Days That You Engage In Moderate To Strenuous Exercise, How Many Minutes, On Average, Do You Exercise? 60 Information not available 09/11/2022 Have There Been Any Changes To Your Family Or Social Situation? No Information not available 09/11/2022 Are There Any Guns Present In Your Home? Yes Information not available 10/22/2022 Do You Use Insect Repellent Routinely? Yes Information not available 09/11/2022 Where Do You Live? SingleLevelHouse Information not available 09/11/2022 Do You Have A Medical Power Of Tobacco Cloth Reclaimer? Yes Information not available 09/11/2022 How Many Children Do You Have? 3 Information not available 09/11/2022 Do You Have Any Pets? Yes Information not available 09/11/2022 Do You Use Protection During Sex? Usually Information not available 09/11/2022 What Is Your Relationship Status? Information not available 09/11/2022 Do You Use Your Seat Belt Or Car Seat Routinely? Yes Information not available 09/11/2022 Are You Sexually Active? Yes Information not available 09/11/2022 Do You Have Smoke And Carbon Monoxide Detectors In Your Home? Yes Information not available 09/11/2022 Are There Any Smokers In Your House? No Information not available 10/22/2022 Do You Participate In Social Media? Yes Information not available 09/11/2022 What Types Of Sporting Activities Do You Participate In? Weight Lifting . Running Information not available 10/22/2022 Do You Feel Stressed (tense, Restless, Nervous, Or Anxious, Or Unable To Sleep At Night)? [id number] Information not available 09/11/2022 Do You Use Any Illicit Or Recreational Drugs? No Information not available 09/11/2022 Do You Use Sunscreen Routinely? Yes Information not available 10/22/2022 Have You Recently Traveled Abroad? No Information not available 09/11/2022 Sex: Unknown Functional Status Question Answer Note LastModified by Organization D etails LastModified Time What is your exercise level? Moderate Information not available 09/11/2022 Mental Status None recorded. Family History Relationship Description Onset Age of this Age Resolved Age Notes LastModified by Organization Details LastModified Time Maternal Grandfather Diabetes mellitus Not available 2022 15:44:27 Maternal Grandfather Heart disease Not available 2022 15:44:41 Mother Suicide 40 Not available 0 09/11/2022 16:00:41 Notes:Father passed in car a ccident age 55 yo. Medical History Condition Response DEPRESSION (INCLUDING POST ) Y Gynecological History Statement/Question Response Flow Moderate Date of LMP 12/19/2022 STIs/STDs N Dislike of Light during Menstrual Headac he Y Do your menstrual headaches get severe N Duration of Flow (days) 3 Most Recent Mammogram Age at Menarche 14 Breast Problems None Date of Last Colonoscopy Frequency of Cycle (Q days) 28 Most Recent Bone Density Sexually Active? Y Menses Monthly Y Date of Last Pap Smear Discharge none Obstetrics History GPAL:G 3 P 0 0 0 0 Past Encounters Encounter ID Performer Location Encounter Start Date Encounter Closed Date Diagnosis/Indication Diagnosis SNOMED-CT Code Diagnosis ICD10 Code Diagnosis Note [id number] Madina Katz NP [facility] [address] [address] 09/11/2022 15:29:51 09/11/2022 16:27:29 Mixed anxiety and depressive disorder 277446624 F41.8 Lexapro 10 mg po daily, start 1/2 tab daily for 8 days, then full tablet daily. Fu i n 6 weeks. Restless sleep 45490437 G47.9 Referring to sleep medicine for sleep walking and not getting restful sleepConsi duane sleep study for home. [id number] Madina Katz NP [address] [address] 10/22/2022 09:08:17 10/22/2022 09:55:18 Mixed anxiety and depressive disorder 447056845 F41.8 Lexapro 10 mg po daily. Fu in 3 mo, January 2023. Restless sleep 87909651 G47.9 Referring to sleep medicine for sleep walking and not getting restful sleepConsi duane sleep study for home. Sleep apnea 12489758 G47 .30 Negative. [id number] Madina Katz NP [address] [address] 01/14/2023 09:07:28 01/14/2023 09:42:43 Mixed anxiety and depressive disorder 035548600 F41.8 Lexapro 10 mg po daily. Restless sleep 66049905 G47.9 Referred to sleep medicine for sleep walking and not getting restful sleep.Home sleep study negative. Sleep apnea 39182078 G47 .30 Negative sleep study 2022 Poor concentration 46236 005 R41.840 Referring to psych for eval and treat. States ADHD in elementary . Health Concerns Section Related Observation LastModified by Organization Detai ls LastModified Time None Recorded Concern Status LastModified by Organization Details LastModified Time None Recorded Advance Directives Directive Y: Payers Encounter Date Sequence Insurance Name Policy Number Policy Kan Covered Member ID Kan Member ID Guarantor Name 09/11/2022 1 [place] - [place] PRIOR TO 2024 - [employer] - [employer] ( - PPO) Constantino Spears [id number] Elizabeth Spears 10/22/2022 1 [place] - DOS PRIOR TO 2024 - [employer] - [employer] ( - PPO) Constantino Spears [id number] Elizabeth Spears 01/14/2023 1 [facility] Constantino Dupont Tory [id number] Shira Elizabeth Spears Notes Date Note Type Note Provider Name and Address Organization Details Recorded Time 09/11/2022 text/html Here for new patient appt. Has been in .Has been on zoloft for . Working for mood, but night time had nightmare. Did not switch on anything else. Youngest child is 2 yo. Then has a 6 and 7 yo.Week prior to period is generally bad and mood swings, irritable. Although this is happening all the time. Working out 4-6 days weekly. 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 Symptoms have started a few months now. Feeling anxiety attacks in [employer] and had to leave cart and go home. 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 Not sleeping well- sleep walking, checking doors or stands on bed and touches fan. Rash- allergy reactions. On Prednisone, allergies, etc. Trying to gigure out cause.Allergy and immunology-Dr. Martell. Weight- gained 30 lbs in last year. Typically 145 lbs. Had full panel of labs and all was good per patient. Madina Katz NP [address], [address], [place], [address], [employer] 09/11/2022 16:24:08 10/22/2022 text/html Here for 6 week check up. Anxiety/depressio n- Has been good with mental health, but libido reduced. Did sleep study. Was negative. Still sleep walking but glad it wasn't sleep apnea. Madina Katz NP [address], [place], [address], [employer] 10/22/2022 09:53:25 01/14/2023 text/html Here for 6 week check up. Anxiety/depressio n- Has been good with mental health, but libido reduced.Did sleep study. Was negative. Still sleep walking but glad it wasn't sleep apnea. Never went to sleep specialist for appt. Still sleep walking. Would like to see sleep specialist.Lack of focus- tested for ADHD and was on adderall for 3-4 years. Didn't like pills. Stopped it. Got through school- but states it was 'awful'. Madina Katz, ILENE [address] [facility], [facility] [address], [place], [address], [place] [facility] 01/14/2023 09:39:35 OBGyn Episode No OBEpisode recorded.
--- OUTSIDE RECORDS SUMMARY | 2024-06-27 18:05 | XMS_ITS | CONTINUITY OF CARE DOCUMENT ---
Author Name pedro luis cloud Address Unknown Organization [facility] Office Address [address] [place] [address] Phone [phone] Care Team Providers Care Bowling Teacher Name Role Phone Sam Shay DO Robert Unavailable Gianna [facility]-Madina Unavailable [phone] Gianna [facility] ESRNA Unavailable INSURANCE PROVIDERS Payer name Policy type / Coverage type Marti red libertarian ID [facility] [address] [employer] insurance [employer] [id number]
[2024-06-27 19:16] VITALS: BP 120/71; PULSE 64; RESP 18; TEMP 36.5; O2SAT 99
--- NOTE | 2024-06-27 20:15 | ED.URI ---
HPI - URI/Sore Throat General Chief Complaint: Upper Respiratory Infection Stated Complaint: sore throat Source: patient, RN notes reviewed and old records reviewed Mode of arrival: ambulatory Limitations: no limitations History of Present Illness HPI Narrative: 3 days sore throat, no medicine since this morning. She has been taking Tylenol and ibuprofen intermittently with good results. She voices no other concerns or complaints today. She states that she is able to eat and drink without difficulty. She did go to work today and finished her day without a problem. She voices no other concerns or complaints today Related Data Home Medications ?Medication ?Instructions ?Recorded ?Confirmed ?Last Taken ?Type cetirizine 10 mg tablet 10 mg PO DAILY 06/01/23 03/03/24 Unknown History dexmethylphenidate 20 mg 20 mg PO DAILY 06/01/23 03/03/24 Unknown History capsule,extended release [id number] famotidine 20 mg tablet 20 mg PO DAILY PRN 07/16/23 03/03/24 Unknown History dexmethylphenidate 5 mg tablet 5 mg PO DAILY breakthrough adhd 03/03/24 03/03/24 Unknown History trazodone 50 mg tablet 50 mg PO QHS PRN 03/03/24 03/03/24 Unknown History buspirone 5 mg tablet mg 06/27/24 Unknown History Allergies Allergy/AdvReac Type Severity Reaction Status Date / Time latex Allergy Intermediate Rash Verified 06/27/24 20:05 Review of Systems Review of Systems: All systems reviewed & are unremarkable except as noted in HPI and below Constitutional: Constitutional: Reports no additional constitutional complaints ENT: Reports system reviewed and no additional complaints, except as documented and Reports sore throat Cardiovascular: Cardiovascular: Reports no additional cardiovascular complaints Respiratory: Respiratory: Reports no additional respiratory complaints Gastrointestinal: Gastrointestinal: Reports no additional gastrointestinal complaints [facility] Past Medical History Medical History ADHD Allergies Anxiety and depression Gynecologic exam normal Micromastia Seasonal allergies Surgical History Surgical History Previous section (2016) Family History Family History Father Alcoholism Mother Alcoholism Depression Grandparent Diabetes mellitus Hypertension Heart disease Social History Social History (Reviewed 03/03/24 @ 08:35 by Hedy Angulo Social History: Pt is confident in completing medical forms. 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 There is no relevant family history pertinent to the patient complaint. Exam Const: General: cooperative, no acute distress, alert and awake Orientation/consciousness: oriented to person, oriented to place and oriented to time HENMT: Head: normal to inspection Ears: TM's normal bilaterally Mouth: Yes moist mucous membranes Throat: posterior oropharynx abnormal erythema Resp: Effort & Inspection: normal respiratory effort and able to speak in complete sentences Auscultation: clear to auscultation bilaterally, no crackles, no rales, no rhonchi and no wheezes Cardio: Palpation: normal PMI Rate: regular rate Rhythm: regular rhythm Heart sounds: S1 normal heart sound present and S2 normal heart sound present Neuro: General: oriented to person, oriented to place and oriented to time Cranial nerves: Yes CN's II-XII intact bilaterally Psych: Appearance: grossly normal Thought process: Normal thought process present Insight: Good insight present (Psych) Judgement: Good judgement present (Psych) Course Course Level of Care: Express Care Visit Vital Signs Vital signs: Vital Signs Temperature 97.7 F 06/27/24 19:16 Pulse Rate 64 06/27/24 19:16 Respiratory Rate 18 06/27/24 19:16 Blood Pressure 120/71 06/27/24 19:16 Pulse Oximetry 99 06/27/24 19:16 Oxygen Delivery Room Air 06/27/24 19:16 Temperature 97.7 F 06/27/24 19:16 Pulse Rate 64 06/27/24 19:16 Respiratory Rate 18 06/27/24 19:16 Blood Pressure 120/71 06/27/24 19:16 Pulse Oximetry 99 06/27/24 19:16 Oxygen Delivery Room Air 06/27/24 19:16 Reviewed MDM - URI/Sore Throat MDM Narrative Medical decision making narrative: negative strep, culture pending. Reassuring physical exam. Supportive care measures discussed. Discharge instructions reviewed with patient, as well as provided in writing per nursing staff. The instructions also include specific and strict return/GO TO THE ER as well as f/u information. All questions have been answered, and the patient deny any further questions with discharge and discharge plan. Some parts of this dictation were generated by voice recognition software and may contain typographical and/or grammatical inaccuracies. Differential Diagnosis Differential diagnosis: Likely upper respiratory infection, otitis media, viral infection and pharyngitis Medical Records Attestation: I reviewed the patient's medical records. Lab Data Attestation: I reviewed the patient's lab results. Labs: Lab Results 06/27/24 Range/Units 20:33 POC Grp A Strep Screen Negative (Negative) Discharge Plan Discharge Clinical Impression: Upper respiratory infection Patient Disposition: Home, Self-Care Condition: Stable Instructions: Antibiotic Form, Cold Symptoms (ED) Additional Instructions: use dkoo-wki-swjfbck medications to treat your symptoms. Follow package instructions. Emergency department for new or worse symptoms. Follow up with primary care provider Patient Language: Polish Prescriptions: No Action cetirizine 10 mg tablet 10 mg PO DAILY dexmethylphenidate 20 mg capsule,ER biphasic 50-50 20 mg PO DAILY famotidine 20 mg tablet 20 mg PO DAILY PRN buspirone 5 mg tablet trazodone 50 mg tablet 50 mg PO QHS PRN dexmethylphenidate 5 mg tablet 5 mg PO DAILY Follow-up/Referrals: Madina Katz APRN [Primary Care Provider] - 2 Weeks Time of Disposition: 20:40
[2024-06-27 20:35] LABS: EDSTREPNEGPOS1 Negative (Negative)
== END 2024-06-27 20:47 | disposition home or self-care (01) ==
PROVIDERS: Emergency Provider Nurse Practitioner Family; PCP Nurse Practitioner Family
DX: J06.9 Acute upper respiratory infection, unspecified (principal); F90.9 Attention-deficit hyperactivity disorder, unspecified type; F32.A Depression, unspecified
CPT/HCPCS: 87081; 87880; 99213; G0463